=== PATIENT | female | born 1960 | race Caucasian/White ===

== ENCOUNTER 2020-05-31 17:30 | Outpatient (CLI) | payer OTHER, SELFPAY ==
--- NOTE | ~2020-05-31 | XR_ITS ---
EXAMINATION: XR elbow RT 2V EXAM DATE: 05/31/2020 17:46 INDICATION: No known recent injury provided at this time. Pain of the right elbow. TECHNIQUE: Frontal and lateral projections of the right elbow. There is no prior study for comparis on. FINDINGS: There are no acute fractures or dislocations identified. There is no subcutaneous gas. Th e soft tissue is unremarkable. There are no radiopaque foreign bodies. IMPRESSION: 1. Unremarkable right elbow exam. Reviewed, dictated and finalized at location A.
== END 2020-05-31 17:31 | disposition home or self-care (01) ==
LOC: ANHIMG 17:33
PROVIDERS: PCP Internal Medicine; Visit Provider Internal Medicine
DX: M25.521 Pain in right elbow (principal)
CPT/HCPCS: 73070

== ENCOUNTER 2020-09-25 17:15 | Outpatient (CLI) | payer OTHER, SELFPAY ==
--- NOTE | ~2020-09-25 | XR_ITS ---
EXAMINATION: XR foot RT 2V DATE: 09/25/2020 17:33 INDICATION: Posttraumatic pain at the right third toe TECHNIQUE: Dorsoplantar and lateral views of the right foot were obtained. COMPARISON: None. FINDINGS: Alignment is normal. No fracture. Mild osteoarthritis at the first metatarsophalangeal and several in terphalangeal joints. Small Achilles and plantar calcaneal spurs. Soft tissues are unremarkable. IMPRESSION: 1. No acute osseous abnormality. Reviewed, dictated and finalized at location A. RU[facility] FLYING
== END 2020-09-25 17:16 | disposition home or self-care (01) ==
PROVIDERS: PCP Internal Medicine; Visit Provider Internal Medicine
DX: M19.071 Primary osteoarthritis, right ankle and foot (principal)
CPT/HCPCS: 73620

== ENCOUNTER 2021-03-19 08:52 | Outpatient (CLI) | payer OTHER, SELFPAY ==
--- NOTE | 2021-03-19 08:58 | EST_ITS ---
Patient Info Name: Codi Alfaro Age: 60 years : 1960 Gender: Female Ht: 63 in Wt: 170 lbs BSA: 1.88 m2 Technical Quality: Good Exam Date: 03/19/2021 9:20 AM Exam Location: [facility] Pulmonary Patient Status: Outpatient Admit Date: 03/19/2021 Staff Ordering Physician: Rafael Wild DO [employer] Powerplant Mechanic: Lorin Almanza RDCS Attending Provider: CHAMP HOFFMANN DO Referring Physician: Junito GARCES; Exam Type: CA stress echo Study Info Indications R07.89 - Other chest pain Treadmill exercise stress echocardiogram is performed. Summary 1. 1. Negative Carlos Enrique exercise stress test for ischemic ST changes by ECG criteria. 2. 2. Good functional capacity, achieving 10 METs of workload. 3. 3. Appropriate HR response to exercise. 4. 4. Appropriate HR recovery at 1 minute post exercise. 5. 5. Negative stress echocardiogram for ischemia by wall motion analysis. 6. 6. Patient informed of the above results. Stress Echo Findings Left Ventricle Appropriate increase in LV endocardial thickening with systole. Appropriate augmentation of contractility with systole. No wall motion abnormality. Left Ventricle Normal LV systolic function, no wall motion abnormality. Protocol: Carlos Enrique Stress ECG Details Stage: REST Duration (min): 3 min : 26 sec Speed (mph): 0.0 Grade (%): 0 HR (bpm): 65 SBP (mmHg): 121 DBP (mmHg): 77 METS: --- Stage: REST Duration (min): 14 min : 38 sec Speed (mph): 0.0 Grade (%): 0 HR (bpm): 72 SBP (mmHg): 121 DBP (mmHg): 77 METS: --- Stage: STAGE 1 Duration (min): 1 min : 0 sec Speed (mph): 1.7 Grade (%): 10 HR (bpm): 82 SBP (mmHg): 121 DBP (mmHg): 77 METS: --- Stage: STAGE 1 Duration (min): 2 min : 0 sec Speed (mph): 1.7 Grade (%): 10 HR (bpm): 97 SBP (mmHg): 121 DBP (mmHg): 77 METS: --- Stage: STAGE 1 Duration (min): 3 min : 0 sec Speed (mph): 1.7 Grade (%): 10 HR (bpm): 99 SBP (mmHg): 141 DBP (mmHg): 69 METS: --- Stage: STAGE 2 Duration (min): 1 min : 0 sec Speed (mph): 2.5 Grade (%): 12 HR (bpm): 102 SBP (mmHg): 141 DBP (mmHg): 69 METS: --- Stage: STAGE 2 Duration (min): 2 min : 0 sec Speed (mph): 2.5 Grade (%): 12 HR (bpm): 110 SBP (mmHg): 145 DBP (mmHg): 68 METS: --- Stage: STAGE 2 Duration (min): 3 min : 0 sec Speed (mph): 2.5 Grade (%): 12 HR (bpm): 114 SBP (mmHg): 145 DBP (mmHg): 68 METS: --- Stage: STAGE 3 Duration (min): 1 min : 0 sec Speed (mph): 3.4 Grade (%): 14 HR (bpm): 125 SBP (mmHg): 145 DBP (mmHg): 68 METS: --- Stage: STAGE 3 Duration (min): 2 min : 0 sec Speed (mph): 3.4 Grade (%): 14 HR (bpm): 130 SBP (mmHg): 145 DBP (mmHg): 68 METS: --- Stage: STAGE 3 Duration (min): 3 min : 0 sec Speed (mph): 3.4 Grade (%): 14 HR (bpm): 137 SBP (mmHg): 163 DBP (mmHg): 79
== END 2021-03-19 08:53 | disposition home or self-care (01) ==
PROVIDERS: PCP Internal Medicine; Visit Provider Internal Medicine
DX: R07.89 Other chest pain (principal); R00.2 Palpitations
CPT/HCPCS: 93351

== ENCOUNTER 2022-10-07 13:02 | Outpatient (CLI) | payer OTHER, SELFPAY ==
[2022-10-07 13:58] LABS: SARS-CoV-2 RNA PCR Negative
== END 2022-10-07 13:03 | disposition home or self-care (01) ==
LOC: ANHLAB 13:03
PROVIDERS: PCP Internal Medicine; Visit Provider Internal Medicine
DX: B34.9 Viral infection, unspecified (principal); Z20.822 Contact with and (suspected) exposure to COVID-19
CPT/HCPCS: U0003; U0005

== ENCOUNTER 2023-09-15 17:47 | Outpatient (CLI) | payer BC, SELFPAY ==
--- NOTE | ~2023-09-15 | XR_ITS ---
EXAMINATION: XR chest 2V DATE: 09/15/2023 18:01 INDICATION: Persistent cough TECHNIQUE: PA and lateral views of the chest are obtained. COMPARISON: 08/10/2009 FINDINGS: The lungs are free of acute opacities. No pleural effusion or pneumothorax. The cardiomedia stinal silhouette is normal. There is mild thoracic spondylosis. There are surgical clips in the righ t upper quadrant. IMPRESSION: 1. No acute cardiopulmonary abnormality. Reviewed, dictated and finalized at location F. [employer]
== END 2023-09-15 17:48 | disposition home or self-care (01) ==
LOC: ANHIMG 17:50
PROVIDERS: PCP Internal Medicine; Visit Provider Physician Assistant
DX: R05.9 Cough, unspecified (principal)
CPT/HCPCS: 71046

== ENCOUNTER 2023-11-09 11:24 | Outpatient (CLI) | payer BC, SELFPAY ==
--- NOTE | ~2023-11-09 | XR_ITS ---
EXAMINATION: XR chest 2V DATE: 11/09/2023 11:41 INDICATION: Right-sided back pain TECHNIQUE: PA and lateral views of the chest are obtained. COMPARISON: 09/15/2023 FINDINGS: The lungs are free of acute opacities. No pleural effusion or pneumothorax. The cardiomedia stinal silhouette is normal. There is mild thoracic spondylosis. Surgical clips in the right upper qu adrant are likely from prior cholecystectomy. IMPRESSION: 1. No acute cardiopulmonary abnormality. Reviewed, dictated and finalized at location F. BAILER
--- NOTE | ~2023-11-09 | XR_ITS ---
EXAMINATION: XR lumbar spine 6V w bending DATE: 11/09/2023 11:41 INDICATION: Low back pain TECHNIQUE: Anteroposterior, lateral in neutral, flexion and extension, and bilateral oblique views of the lumbar spine, and cone-down lateral view of the lumbosacral junction were obtained. COMPARISON: 12/24/2008 FINDINGS: There are 2 mm of retrolisthesis of L4 on L5 and L5 on S1. There is no hypermobility with f lexion or extension. The vertebral body heights are maintained. There is moderate loss of interverteb ral disc space height at L2-3, L4-5, and L5-S1. There is no fracture. Small degenerative osteophytes project from the anterior endplates of multiple vertebral bodies. There is moderate facet joint osteo arthritis from L3-4 through L5-S1. Surgical clips in the right upper quadrant are likely from prior c holecystectomy. IMPRESSION: 1. Moderate lumbar spondylosis without acute findings. Reviewed, dictated and finalized at location F. [employer]
== END 2023-11-09 11:25 | disposition home or self-care (01) ==
LOC: ANHIMG 11:26
PROVIDERS: PCP Internal Medicine; Visit Provider Physician Assistant
DX: M43.06 Spondylolysis, lumbar region (principal); R05.8 Other specified cough
CPT/HCPCS: 71046; 72114

== ENCOUNTER 2024-03-09 17:33 | Inpatient (IN) | payer BC, SELFPAY ==
--- NOTE | ~2024-03-09 | CT_ITS ---
EXAMINATION: CT soft tissue neck wo con DATE: 03/09/2024 20:35 INDICATION: TECHNIQUE: Computed tomography (CT) of the neck was performed with 75 mL Omnipaque-350 intravenous co ntrast. The dose-length product was 407.78 mGy-cm. COMPARISON: None FINDINGS: Diffuse right parotid swelling. Punctate calcification in the right parotid gland. The left parotid g land is normal. The thyroid gland is unremarkable. The submandibular glands are symmetric. There is no cervical lymphadenopathy. There are no masses identified. The superior mediastinum is unre markable. The airway is unremarkable. Parapharyngeal and pre-glottic fat planes are preserved. T he orbits are unremarkable. Visualized sinuses and mastoid air cells are well aerated. Minimal de pendent edema/atelectasis. There is cervical spondylosis. IMPRESSION: Right parotiditis. Reviewed, dictated and finalized at location K. IMPRESSION: Right parotiditis.
[2024-03-09 17:51] VITALS: BP 133/86; PULSE 82; RESP 16; TEMP 36.5; O2SAT 99
[2024-03-09 20:18] VITALS: BP 132/79; PULSE 84; RESP 18; TEMP 36.6; O2SAT 100
[2024-03-09 20:28] LABS: Basophils Percent Auto 0.4 % (0.2-1.2); Eosinophils Absolute Auto 0.1 K/mm3 (0-0.3); Eosinophils Percent Auto 1.3 % (0-4.4); Hematocrit 39.7 % (37.0-47.0); Hemoglobin 13.5 g/dL (12.0-15.0); Immature Granulocyte Absolute 0.02 K/mm3 (0.00-0.031); Immature Granulocyte Percent A 0.3 % (0-0.5); Lymphocytes Absolute Auto 1.54 K/mm3 (0.9-3.2); Lymphocytes Percent Auto 19.8 % (18.3-44.2); Mean Corpuscular Volume 91.3 fl (80-100); Mean Platelet Volume 10.4 fl (7.4-10.4); Monocytes Absolute Auto 0.5 K/mm3 (0.1-0.6); Monocytes Percent Auto 5.9 % (2.6-8.5); Neutrophils Absolute Auto 5.6 K/mm3 (1.3-6.7); Neutrophils Percent Auto 72.3 % (45.5-73.1); Platelet Count Result 129 k/mm3 (150-375); Red Blood Count 4.35 M/mm3 (4.2-5.4); Red Cell Distribution Width 13.3 % (11.5-14.5); White Blood Count 7.8 K/mm3 (4.5-10.0)
[2024-03-09 20:37] LABS: Alanine Aminotransferase 19 U/L (6-35); Albumin Level 4.4 g/dL (3.5-5.1); Alkaline Phosphatase 122 U/L (38-126); Anion Gap 7 mmol/L (4-12); Aspartate Amino Transferase 32 U/L (14-36); Bilirubin,Total 1.2 mg/dL (0.2-1.3); Blood Urea Nitrogen 20 mg/dL (7-17); Calcium 9.5 mg/dL (8.4-10.2); Carbon Dioxide 25 mmol/L (22-30); Chloride 104 mmol/L (98-107); Estimated CRCL calculation 50 ml/min; Estimated Glomerular Filt Rate 56; Glucose 99 mg/dL (65-110); Potassium 4.1 mmol/L (3.4-5.0); Sodium 136 mmol/L (137-145)
[2024-03-09] MEDS: SODIUM CHLORIDE 0.9% IV 1,000 ML 999 ML IV CONT (20:50)
[2024-03-09 21:37] VITALS: BP 137/62; PULSE 63; RESP 18; TEMP 36.8; O2SAT 97
--- NOTE | 2024-03-09 22:14 | ED.GENADULT ---
HPI - General Adult General Chief complaint: Recheck/Abnormal Lab/Rx Stated complaint: swelling to right ear Time Seen by Provider: 03/09/24 19:12 History of Present Illness HPI narrative: This is a 63-year-old female with a history of liver transplant on immunosuppression presenting with swelling beneath the right ear. Patient notes the swelling earlier today. It is in the angle of her jaw and now is having pain going down her neck. She has no difficulty swallowing. She denies fever chills nausea vomiting or diarrhea. no hx of viral illness. Related Data Home Medications Medication Instructions Recorded Confirmed ursodiol 300 mg capsule 600 mg PO BID 01/05/20 03/09/24 mycophenolate mofetil 250 mg 1,000 mg PO Q12H 01/10/21 03/09/24 capsule tacrolimus 1 mg capsule, 2 mg PO Q12H 05/21/21 03/09/24 immediate-release (Prograf) Allergies Allergy/AdvReac Type Severity Reaction Status Date / Time Iodinated Contrast Media Allergy Severe SOB Verified 03/09/24 22:15 minocycline Allergy Severe Hives Verified 03/09/24 22:15 tetracycline Allergy Severe HIVES, Verified 03/09/24 22:15 THROAT SWELLING PMFSH Past Medical History Medical History Anxiety Hyperlipidemia Hypothyroidism Primary biliary cirrhosis Surgical History Surgical History Delivery by section History of endometrial ablation History of tubal ligation S/P liver transplant Family History Family History Father Patient's father is Mother Lung cancer Other Acute myocardial infarction Heart disease Social History Social History Smoking status: Former smoker Smoking end date: 10/27/83 Alcohol intake: never Substance use: never Substance use type: does not use Do You Feel Safe in your Home?: Yes Lack of Transportation: No Lack of Food: Never True Current Housing: I Have Housing Concerned About Future Housing: No Difficulty Paying Gas/Electric Bills: No Difficulty Paying for Meds: No Currently Unemployed: No Education: Associate Degree Difficulty w/ Childcare or Family Care: No Living arrangements: with family Occupation/Education: occupation Gender identity (if verbalized by the patient): Female Sexual Orientation (if Verbalized by the Patient): Straight or Heterosexual Exam Narrative: APPEARANCE: No apparent distress. Head: Tender palpable mass over the parotid on the right side. No overlying skin changes. Poor dentition. No swelling of the tongue uvula or posterior oropharynx. EYES: EOMI, NOSE: Atraumatic NECK: Trachea midline RESPIRATORY: No increased rate of breathing, CTAB CARDIOVASCULAR: RRR, ABDOMINAL: Non-distended MUSCULOSKELETAl: No obvious deformities NEURO: Alert. Moving 4/4 extremities SKIN:: Warm, dry. Normal color PSYCHIATRIC: Normal affect Course Vital Signs Vital signs: Vital Signs Temperature 97.7 F 03/09/24 17:51 Pulse Rate 82 03/09/24 17:51 Respiratory Rate 16 03/09/24 17:51 Blood Pressure 133/86 03/09/24 17:51 Pulse Oximetry 99 03/09/24 17:51 Oxygen Delivery Room Air 03/09/24 17:51 Temperature 98.2 F 03/09/24 21:37 Pulse Rate 63 03/09/24 21:37 Respiratory Rate 18 03/09/24 21:37 Blood Pressure 137/62 03/09/24 21:37 Pulse Oximetry 97 03/09/24 21:37 Oxygen Delivery Room Air 03/09/24 20:18 Medical Decision Making [facility] Narrative Medical decision making narrative: -Course: 63-year-old female with liver transplant on immunosuppression presenting for swelling of her right parotid gland. CT shows parotitis. Patient has normal white count/ stable vital signs. No evidence of sepsis at this time. However she is immunosuppressed. She will be placed in observatio
--- NOTE | 2024-03-09 22:23 | PM.IMHP ---
H&P: HPI History of Present Illness Date/Time: 03/09/24 22:23 Chief Complaint: jaw swelling Narrative: This is a 63-year-old female with past medical history significant for liver transplant, hypothyroidism, chronic drug induced immunosuppression. patient presents to the emergency room due to swelling at the right side of her face, painful. Patient has been her usual state of health, denies any fevers, rigors, chills, no dysphagia, no odynophagia. Preliminary workup was significant for right-sided parotiditis. Patient has been admitted for further evaluation management and treatment. EXAMINATION: CT soft tissue neck wo con DATE: 03/09/2024 20:35 INDICATION: TECHNIQUE: Computed tomography (CT) of the neck was performed with 75 mL Omnipaque-350 intravenous contrast. The dose-length product was 407.78 mGy-cm. COMPARISON: None FINDINGS: Diffuse right parotid swelling. Punctate calcification in the right parotid gland. The left parotid gland is normal.? The thyroid gland is unremarkable. ? The submandibular glands are symmetric. ? There is no cervical lymphadenopathy.? There are no masses identified.? ? The superior mediastinum is unremarkable. ? The airway is unremarkable. ? Parapharyngeal and pre-glottic fat planes are preserved.? The orbits are unremarkable. ? Visualized sinuses and mastoid air cells are well aerated. ? Minimal dependent edema/atelectasis.? There is cervical spondylosis. IMPRESSION: Right parotiditis. Review of Systems Review of Systems: Right side face swelling Constitutional: Constitutional: Denies chills, Denies fever(s), Denies malaise, Denies night sweats and Denies poor appetite Eyes: Eyes: Denies change in vision ENT: Denies dysphagia and Denies odynophagia Cardiovascular: Cardiovascular: Denies chest pain, Denies radiating jaw, neck or arm pain and Denies palpitations Respiratory: Respiratory: Denies chest congestion and Denies cough Gastrointestinal: Gastrointestinal: Denies abdominal pain, Denies diarrhea, Denies nausea and Denies vomiting Genitourinary: Genitourinary: Denies dysuria Musculoskeletal: Musculoskeletal: Denies myalgias Integumentary/Breasts: Skin/Breast: Denies rash Neurologic: Denies focal weakness and Denies Sensory deficit (Neuro) Psychiatric: Psychiatric: Reports no additional psychiatric complaints and Reports as per HPI Endocrine: Endocrine: Denies cold intolerance, Denies heat intolerance, Denies polyphagia, Denies polydipsia, Denies polyuria and Denies palpitations Hematologic/Lymphatic: Hematologic/Lymphatic: Reports no additional hematologic/lymphatic complaints and Reports as per HPI Allergic/Immunologic: Allergic/Immunologic: Reports no additional allergic/immunologic complaints and Reports as per HPI [facility] Past Medical History Medical History Anxiety Hyperlipidemia Hypothyroidism Primary biliary cirrhosis Surgical History Surgical History Delivery by section History of endometrial ablation History of tubal ligation S/P liver transplant Family History Family History (Updated 03/09/24 @ 23:49 by Priscila Cartagena RN) Father Patient's father is Acute myocardial infarction Parkinson disease Mother Lung cancer Patient's mother is Social History Social History Smoking status: Former smoker Tobacco type: cigarettes Smoking end date: 10/27/83 Alcohol intake: never Substance use: never Substance use type: does not use Do You Feel Safe in your Home?: Yes Lack of Transportation: No Lack of Food: Never True Current Housing: I Have Housing Concerned About Future Housing: No Difficulty Paying Gas/Electric Bills: No Difficulty Paying for Meds: No Currently Unemployed: No Education: Associate Degree D
[2024-03-09] MEDS: SODIUM CHLORIDE 0.9% IV 2,000 ML 999 ML IV CONT (22:26)
--- NOTE | 2024-03-09 22:26 | PC.NURSE ---
1st set of blood cultures obtained by ronny esquivel at this time.
--- NOTE | 2024-03-09 22:38 | PC.NURSE ---
blood cultures x 2 obtained by tech, antibiotics starting
[2024-03-09] MEDS: PIPERACILLN/TAZ 3.375GM/NS50ML 3.375 GM/50 ML BAG IVPB (22:42)
[2024-03-09] MEDS: VANCOMYCIN 1,250 MG/NS 250 ML 1,250 MG/250 ML BAG 166.67 MG IVPB (22:58)
[2024-03-09 23:01] VITALS: BP 131/81; PULSE 66; RESP 18; TEMP 36.7; O2SAT 95
--- NOTE | 2024-03-09 23:23 | ADMGEN ---
This patient, Codi Alfaro, was admitted to Medical Room 348-. Patient/family oriented to hospital policies and general routines including ID bracelet, bed and alarms, visiting hours, pain management, procedures, bathroom and other care routines, personal items, smoking policy, room service/diet, and visiting hours. Information on how to activate the Rapid Response Team has been discussed. Patient/Family are encouraged to report perceived risks to care and to ask questions if they do not understand what they are told or what they should do.
[2024-03-09 23:31] VITALS: BP 154/87; PULSE 79; RESP 16; TEMP 36.8; O2SAT 100; BMI 31.0
[2024-03-10 00:12] LABS: Lactic Acid Reflex < 0.5 mmol/L (0.7-2.0)
[2024-03-10] MEDS: diphenhydrAMINE HCl INJ 50 MG/ML VIAL IV PUSH (01:04)
--- NOTE | 2024-03-10 01:14 | PC.NURSE ---
Patient was admitted to [facility] with Vancomycin running from ED . During admission assessment patient complained of scalp itching and redness was noted. Hospitalist was contacted and order for Benedryl 50 mg once was obtained.
[2024-03-10] MEDS: IBUPROFEN 400 MG TABLET 800 MG PO (02:03)
[2024-03-10 04:54] VITALS: BP 137/81; PULSE 61; RESP 16; TEMP 36.7; O2SAT 98
[2024-03-10 05:49] LABS: Estimated CRCL calculation 57 ml/min; Estimated Glomerular Filt Rate > 60
[2024-03-10] MEDS: PIPERACILLN/TAZ 3.375GM/NS50ML 3.375 GM/50 ML BAG IVPB (05:57)
[2024-03-10] MEDS: LEVOTHYROXINE SODIUM 75 MCG TABLET PO (05:57)
[2024-03-10 08:33] VITALS: O2SAT 99
[2024-03-10] MEDS: ursodioL 300 MG CAPSULE 600 MG PO ×2 (09:01→20:24)
[2024-03-10] MEDS: TACROLIMUS 0.5 MG CAPSULE 2 MG BY MOUTH ×2 (09:01→20:25)
[2024-03-10] MEDS: SERTRALINE HCL 50 MG TABLET PO (09:01)
[2024-03-10] MEDS: mycophenolate mofetiL 250 MG CAPSULE PO ×2 (09:01→20:24)
[2024-03-10 10:08] LABS: Basophils Percent Auto 0.5 % (0.2-1.2); Eosinophils Absolute Auto 0.1 K/mm3 (0-0.3); Eosinophils Percent Auto 1.2 % (0-4.4); Hematocrit 38.6 % (37.0-47.0); Hemoglobin 12.9 g/dL (12.0-15.0); Immature Granulocyte Absolute 0.01 K/mm3 (0.00-0.031); Immature Granulocyte Percent A 0.2 % (0-0.5); Immature Platelet Fraction Pct 3.2 % (0.9-11.2); Lymphocytes Absolute Auto 1.64 K/mm3 (0.9-3.2); Lymphocytes Percent Auto 28.5 % (18.3-44.2); Mean Corpuscular HGB Conc 33.4 g/dl (32-36); Mean Corpuscular Hemoglobin 31.2 pg (26-34); Mean Corpuscular Volume 93.5 fl (80-100); Mean Platelet Volume 10.9 fl (7.4-10.4); Monocytes Absolute Auto 0.5 K/mm3 (0.1-0.6); Neutrophils Absolute Auto 3.6 K/mm3 (1.3-6.7); Neutrophils Percent Auto 61.6 % (45.5-73.1); Platelet Count Result 120 k/mm3 (150-375); Red Blood Count 4.13 M/mm3 (4.2-5.4); Red Cell Distribution Width 13.6 % (11.5-14.5); White Blood Count 5.8 K/mm3 (4.5-10.0)
[2024-03-10 10:52] LABS: Alanine Aminotransferase 19 U/L (6-35); Albumin Level 3.7 g/dL (3.5-5.1); Alkaline Phosphatase 106 U/L (38-126); Anion Gap 6 mmol/L (4-12); Aspartate Amino Transferase 36 U/L (14-36); Bilirubin,Total 1.2 mg/dL (0.2-1.3); Blood Urea Nitrogen 15 mg/dL (7-17); Calcium 8.4 mg/dL (8.4-10.2); Carbon Dioxide 21 mmol/L (22-30); Chloride 112 mmol/L (98-107); Estimated CRCL calculation 57 ml/min; Estimated Glomerular Filt Rate > 60; Glucose 93 mg/dL (65-110); Magnesium 1.4 mg/dL (1.6-2.3); Sodium 139 mmol/L (137-145)
[2024-03-10] MEDS: metroNIDAZOLE 500 MG/ISO 100ML 500 MG/100 ML BAG 100 MG IVPB ×2 (12:19→17:17)
[2024-03-10] MEDS: AMPICILLIN SULB 3 GM/NS 100 ML 3 GM/100 ML VIAL IVPB ×2 (12:19→17:17)
[2024-03-10 14:00] VITALS: BP 127/68; PULSE 63; RESP 14; TEMP 36.4; O2SAT 99
[2024-03-10] MEDS: MAGNESIUM OXIDE 400 MG TABLET PO (16:35)
[2024-03-10] MEDS: IBUPROFEN 600 MG TABLET PO (16:36)
--- NOTE | 2024-03-10 18:40 | PM.IMPN ---
Progress Note: A&P Assessment and Plan (1) Acute parotitis: Code(s): K11.21 - Acute sialoadenitis Status: Acute Assessment and Plan: placed in observation started on Zosyn and vanc 03/10: Changed antibiotics to Unasyn and Flagyl DC vancomycin is no risk for MRSA White count 5.8 today Afebrile, generalized body aches Likely a transition oral agents tomorrow and discharge (2) Liver transplant recipient: Code(s): Z94.4 - Liver transplant status Status: Acute Assessment and Plan: continue tacrolimus continue mycophenolate Subjective Date/time seen: 03/10/24 18:40 Interval history: 03/10: Patient doing well today. She complains of generalized body aches. Swelling to her right parotid has decreased. She still has some tenderness to palpation. Denies drainage. Review of Systems Review of Systems: All systems reviewed & are unremarkable except as noted in HPI and below Exam Narrative: General: well appearing, appears stated age. HEENT: normocephalic, atraumatic. Mucous membranes moist. EOMI, PERRLA, bilateral sclera anicteric, no conjunctival injection. Mild edema to right parotid gland, without JVD, lymphadenopathy, or bruit. Respiratory: clear to auscultation bilaterally. No rales/rhonic/wheezes. Cardiovascular: Regular rate and rhythm, normal S1-S2 upon auscultation. No murmurs, rubs, or clicks. PMI is nondisplaced, capillary refill less than 3 second. Abdomen: Soft, round, no pulsatile masses, nondistended and nontender. No rebound, no guarding. No CVA tenderness, no hepatosplenomegaly. Bowel sounds present to all four quadrants. No high pitch or tinkling sounds, resonant to percussion. Extremities: No cyanosis, clubbing, or edema present. Pulses are palpable 2/2. Active ROM to all four extremities. Neuro: Alert and orientated x 4. PERRLA. Cranial nerves 2-12 intact without focal deficit. Skin: Warm, dry, and intact, without rash, erythema, or lesion. Appears scantly jaundice. Lines: Incisions: Psych: pleasant, cooperative, normal speech, normal affect, no hallucinations, no dysarthria Objective Data Vital Signs Vital Signs: Vital Signs - 24 hr 03/09/24 20:18 03/09/24 21:37 03/09/24 23:01 Temperature 97.8 F 98.2 F 98.1 F Pulse Rate 84 63 66 Respiratory Rate 18 18 18 Blood Pressure 132/79 137/62 131/81 Pulse Oximetry 100 97 95 Oxygen Delivery Room Air 03/09/24 23:31 03/10/24 04:54 03/10/24 08:33 Temperature 98.2 F 98.1 F Pulse Rate 79 61 Respiratory Rate 16 16 Blood Pressure 154/87 H 137/81 Pulse Oximetry 100 98 99 Oxygen Delivery Room Air 03/10/24 08:00 03/10/24 14:00 Temperature 97.5 F L Pulse Rate 63 Respiratory Rate 14 Blood Pressure 127/68 Pulse Oximetry 99 Oxygen Delivery Room Air Intake/Output Intake/Output: Intake & Output 03/07/24 03/08/24 03/09/24 03/10/24 23:59 23:59 23:59 23:59 Intake Total 1000 3133.9 Output Total 600 Balance 1000 2533.9 Meds/Results Medications: Active Medications Generic Name Dose Route Start Last Admin Trade Name Freq PRN Reason Stop Dose Admin Ampicillin Sodium/Sulbactam Sodium 3 gm in 100 mls @ 200 mls/hr 03/10/24 12:00 03/10/24 17:17 Unasyn 3 Gm/Ns 100 Ml IVPB 200 mls/hr Q6HR LATONYA Administration Metronidazole 500 mg in 100 mls @ 100 mls/hr 03/10/24 10:00 03/10/24 17:17 Flagyl 500 Mg/Iso Soln 100 Ml IVPB 100 mls/hr Q8H LATONYA Administration Levothyroxine Sodium 75 mcg 03/10/24 06:30 03/10/24 05:57 Levothyroxine Sodium 75 Mcg Tablet PO 75 mcg DAILY@0630 LATONYA Administration Lorazepam 0.5 mg 03/10/24 02:33 Lorazepam (*Crx) 0.5 Mg Tablet PO DAILY PRN anxiety Mycophenolate Mofetil 250 mg 03/10/24 09:00 03/10/24 09:01 Mycophenolate Mofetil 250 Mg Capsule PO 250 mg Q12HR LATONYA Administration Sertraline HCl 50 mg 03/10/24 09:00 03/10/24 09:01 Sertraline Hcl 50 Mg Tablet PO 50 mg DAILY LATONYA A
[2024-03-10 20:22] VITALS: BP 132/67; PULSE 61; RESP 20; TEMP 36.9; O2SAT 98
[2024-03-11] MEDS: AMPICILLIN SULB 3 GM/NS 100 ML 3 GM/100 ML VIAL IVPB ×3 (01:02→12:38)
[2024-03-11] MEDS: metroNIDAZOLE 500 MG/ISO 100ML 500 MG/100 ML BAG 100 MG IVPB ×2 (01:40→09:46)
[2024-03-11 05:08] VITALS: BP 144/86; PULSE 64; RESP 18; TEMP 36.9; O2SAT 98
[2024-03-11] MEDS: LEVOTHYROXINE SODIUM 75 MCG TABLET PO (06:11)
[2024-03-11 06:14] LABS: Basophils Percent Auto 0.6 % (0.2-1.2); Eosinophils Absolute Auto 0.2 K/mm3 (0-0.3); Eosinophils Percent Auto 3.3 % (0-4.4); Hematocrit 39.6 % (37.0-47.0); Hemoglobin 13.5 g/dL (12.0-15.0); Immature Granulocyte Absolute 0.01 K/mm3 (0.00-0.031); Immature Granulocyte Percent A 0.2 % (0-0.5); Immature Platelet Fraction Pct 3.4 % (0.9-11.2); Lymphocytes Absolute Auto 1.41 K/mm3 (0.9-3.2); Mean Corpuscular HGB Conc 34.1 g/dl (32-36); Mean Corpuscular Hemoglobin 31.5 pg (26-34); Mean Corpuscular Volume 92.5 fl (80-100); Mean Platelet Volume 10.3 fl (7.4-10.4); Monocytes Absolute Auto 0.4 K/mm3 (0.1-0.6); Monocytes Percent Auto 7.6 % (2.6-8.5); Neutrophils Absolute Auto 3.2 K/mm3 (1.3-6.7); Neutrophils Percent Auto 61.3 % (45.5-73.1); Platelet Count Result 122 k/mm3 (150-375); Red Blood Count 4.28 M/mm3 (4.2-5.4); Red Cell Distribution Width 13.7 % (11.5-14.5); White Blood Count 5.2 K/mm3 (4.5-10.0)
[2024-03-11 06:33] LABS: Alanine Aminotransferase 19 U/L (6-35); Albumin Level 4.1 g/dL (3.5-5.1); Alkaline Phosphatase 125 U/L (38-126); Anion Gap 8 mmol/L (4-12); Aspartate Amino Transferase 32 U/L (14-36); Bilirubin,Total 1.5 mg/dL (0.2-1.3); Blood Urea Nitrogen 15 mg/dL (7-17); Calcium 8.9 mg/dL (8.4-10.2); Carbon Dioxide 21 mmol/L (22-30); Chloride 110 mmol/L (98-107); Estimated CRCL calculation 64 ml/min; Estimated Glomerular Filt Rate > 60; Glucose 95 mg/dL (65-110); Magnesium 1.6 mg/dL (1.6-2.3); Potassium 4.2 mmol/L (3.4-5.0); Sodium 139 mmol/L (137-145)
[2024-03-11] MEDS: SERTRALINE HCL 50 MG TABLET PO (09:45)
[2024-03-11] MEDS: ursodioL 300 MG CAPSULE 600 MG PO (09:45)
[2024-03-11] MEDS: TACROLIMUS 0.5 MG CAPSULE 2 MG BY MOUTH (09:46)
[2024-03-11] MEDS: mycophenolate mofetiL 250 MG CAPSULE PO (09:46)
--- NOTE | 2024-03-11 10:11 | PM.DS ---
DS: Admitting Diagnosis Discharge Date 03/11 Admitting Diagnosis right facial swelling and pain DS: Discharge Diagnosis Discharge Diagnosis (1) Acute parotitis: Code(s): K11.21 - Acute sialoadenitis Status: Acute Assessment and Plan: placed in observation started on Zosyn and vanc 03/10: Changed antibiotics to Unasyn and Flagyl DC vancomycin is no risk for MRSA White count 5.8 today Afebrile, generalized body aches Likely a transition oral agents tomorrow and discharge (2) Liver transplant recipient: Code(s): Z94.4 - Liver transplant status Status: Acute Assessment and Plan: continue tacrolimus continue mycophenolate DS: Summary Hospital Course Reason for hospitalization: acute parotitis Hospital Course: This is a 63-year-old female with past medical history significant for liver transplant, hypothyroidism, chronic drug induced immunosuppression. patient presents to the emergency room due to swelling at the right? side of her face, painful.? Patient has been her usual state of health, denies any fevers, rigors, chills, no dysphagia, no odynophagia.? Preliminary workup was significant for right-sided parotiditis.? Patient has been admitted for further evaluation management and treatment. Patient received IV antibiotics and her symptoms improved. Her labs have been reviewed and are stable. Isolated hydrobilirubin seen on am labs with no other concerns on LFT panel. She is stable to discharge today with oral antibiotics and appropriate PCP follow up. Time Spent with Patient Time attestation: Total time spent providing and/or coordinating discharge services: 56 Exam Narrative: General: well appearing, appears stated age. HEENT: normocephalic, atraumatic. Mucous membranes moist. EOMI, PERRLA, bilateral sclera anicteric, no conjunctival injection. Mild edema to right parotid gland, without JVD, lymphadenopathy, or bruit. Respiratory: clear to auscultation bilaterally. No rales/rhonic/wheezes. Cardiovascular: Regular rate and rhythm, normal S1-S2 upon auscultation. No murmurs, rubs, or clicks. PMI is nondisplaced, capillary refill less than 3 second. Abdomen: Soft, round, no pulsatile masses, nondistended and nontender. No rebound, no guarding. No CVA tenderness, no hepatosplenomegaly. Bowel sounds present to all four quadrants. No high pitch or tinkling sounds, resonant to percussion. Extremities: No cyanosis, clubbing, or edema present. Pulses are palpable 2/2. Active ROM to all four extremities. Neuro: Alert and orientated x 4. PERRLA. Cranial nerves 2-12 intact without focal deficit. Skin: Warm, dry, and intact, without rash, erythema, or lesion. Appears scantly jaundice. Lines: Incisions: Psych: pleasant, cooperative, normal speech, normal affect, no hallucinations, no dysarthria DS: Data Data Completed and Pending Labs on day of discharge: Labs from last 24 hours 03/11/24 03/10/24 05:46 05:21 WBC 5.2 5.8 RBC 4.28 4.13 L Hgb 13.5 12.9 Hct 39.6 38.6 MCV 92.5 93.5 MCH 31.5 31.2 MCHC 34.1 33.4 RDW 13.7 13.6 Plt Count 122 L 120 L MPV 10.3 10.9 H Immature Gran % (Auto) 0.2 0.2 Neut % (Auto) 61.3 61.6 Lymph % (Auto) 27.0 28.5 J[place]uld % (Auto) 7.6 8.0 Eos % (Auto) 3.3 1.2 Baso % (Auto) 0.6 0.5 Lymph # (Auto) 1.41 1.64 J[place]uld # (Auto) 0.4 0.5 Eos # (Auto) 0.2 0.1 Baso # (Auto) 0.0 0.0 Abs Immat Gran (auto) 0.01 0.01 Absolute Neuts (auto) 3.2 3.6 Absolute Nucleated RBC 0.000 0.000 Nucleated RBC % 0.0 0.0 % Immature Plt Fraction 3.4 3.2 Sodium 139 139 Potassium 4.2 4.0 Chloride 110 H 112 H Carbon Dioxide 21 L 21 L Anion Gap 8 6 BUN 15 15 D Creatinine 0.80 0.90 Estim Creat Clear Calc 64 57 Estimated GFR > 60 > 60 Glucose 95 93 Calcium 8.9 8.4 Magnesium 1.6 1.4 L Total Bilirubin 1.5 H 1.2 AST 32 36 ALT 19 19 Alkaline Phosphatase 125 106 Total Protein 7.0 7.0 Albumi
== END 2024-03-11 14:31 | disposition home or self-care (01) | DRG 155 ==
LOC: ANHED 22:25 → ANH3MED 22:52
PROVIDERS: Admitting Provider Internal Medicine; Emergency Provider Emergency Medicine; PCP Internal Medicine; Visit Provider Nurse Practitioner Acute Care
DX: K11.21 Acute sialoadenitis (principal); D84.821 Immunodeficiency due to drugs; Z94.4 Liver transplant status; E78.5 Hyperlipidemia, unspecified; E03.9 Hypothyroidism, unspecified; F41.9 Anxiety disorder, unspecified; Z87.891 Personal history of nicotine dependence; Z79.621 Long term (current) use of calcineurin inhibitor; Z79.899 Other long term (current) drug therapy
CPT/HCPCS: 36415; 70490; 80053; 82565; 83605; 83735; 85025; 85055; 87040; 96361; 96365; 96366; 96367; 96375; 99285; A9270; G0378; J0295; J1200; J1836; J2543; J3370; J7030; J7120; J7517

== ENCOUNTER 2024-09-29 17:42 | Outpatient (CLI) | payer BC, SELFPAY ==
[2024-09-29 18:38] LABS: Strep Group A RT-PCR NOT DETECTED (Negative)
== END 2024-09-29 17:43 | disposition home or self-care (01) ==
LOC: ANHLAB 17:44
PROVIDERS: PCP Internal Medicine; Visit Provider Internal Medicine
DX: J02.9 Acute pharyngitis, unspecified (principal)
CPT/HCPCS: 87081; 87651

== ENCOUNTER 2024-12-11 11:19 | Outpatient (CLI) | payer BC, SELFPAY ==
--- NOTE | ~2024-12-11 | XR_ITS ---
HISTORY: M79.641 - Pain in right hand COMPARISON: None TECHNIQUE: 3 views of the right hand were performed. FINDINGS: No acute fracture is identified. Gullwing deformity is identified within the proximal interphalangeal joint spaces of the second, thir d, fourth and fifth digits. Narrowing of the first carpometacarpal joint space is identified with subchondral sclerosis. Periarti cular osteopenia is identified. The distal interphalangeal joint spaces are maintained. The remaining joint spaces are preserved. The carpal arcs are intact. Mild radiocarpal joint space narrowing with sclerosis of the distal radius is present. No significant soft tissue swelling. No radiopaque foreign body is identified. IMPRESSION: No acute fracture or dislocation within the right hand, as detailed above. Findings suggesting osteoarthritis, as detailed above. Reviewed, dictated and finalized at location A. D INVESTIGATOR
--- OUTSIDE RECORDS SUMMARY | 2024-12-11 11:22 | XMS_ITS | Clinical Summary ---
Author Organization [facility] Address [facility] [place] [address] Care Team Providers Care Contact Representative Name Role Phone Rafael Wild MD Primary Care Provider [phone] Allergies Active Allergy Reactions Criticality Noted Date Comments Iodine Anaphylaxis High 08/18/2018 Tetracycline Anaphylaxis High 08/18/2018 Medications lorazepam 0.5 MG tablet Take 0.5 mg by mouth daily as needed for Anxiety. 0 07/31/2018 Active levothyroxine 75 MCG tablet Take 75 mcg by mouth daily. 07/21/2018 Active mycophenolate 250 MG capsule Take 250 mg by mouth 2 (two) times a day. 08/06/2018 Active sertraline 50 MG tablet Take 50 mg by mouth daily. 07/21/2018 Active tacrolimus 1 MG capsule Take 2 mg by mouth 2 (two) times a day. 07/21/2018 Active ursodiol 300 MG capsule Take 500 mg by mouth 2 (two) times daily. 07/21/2018 Active Family History Medical History Relation Comments Heart Disease Father Cancer Maternal Grandfather Heart Disease Maternal Grandfather Heart Disease Maternal Grandmother Cancer Mother Heart Disease Paternal Grandfather Heart Disease Paternal Grandmother Relation Status Comments Father Maternal Grandfather pancreatic Maternal Grandmother Mother lung Paternal Grandfather Paternal Grandmother Social History Tobacco Use Types Packs/Day Years Used Date Smoking Tobacco: Never Smokeless Tobacco: Never Alcohol Use Standard Drinks/Week Comments No 0 (1 standard drink = 0.6 oz pur e alcohol) AUDIT-C Answer Date Recorded Frequency of Alcohol Consumption Never 08/18/2018 Average Number of Drinks Not on file 018 Frequency of Binge Drinking Not on file 07/28 Comments No Sex and Gender Information Value Date Recorded Sex Assigned at Not on file Legal Sex Female 7:10 AM CDT Gender Identity Not on file Sexual Orientation Not on file Last Filed Vital Signs Vital Sign Reading Time Taken Comments Blood Pressure 122/72 10/01/2018 3:30 AM FACULTY CRIMINAL JUSTICE Pulse 56 10/01/2018 3:30 AM [employer]AL [employer] Temperature 36.9 C (98.4 F) 10/01/2018 12:19 AM F[employer]AL [employer] Respiratory Rate 15 10/01/2018 3:30 AM FAC[employer]Y CR[employer]INAL [employer]ICE Oxygen Saturation 93% 10/01/2018 3:30 AM FAC[employer]Y CR[employer]INAL [employer]ICE Inhaled Oxygen Concentration - - Weight 77 kg (169 lb 12.8 oz) 10/01/2018 12:19 A M [employer] Height 160 cm (5' 3 ) 10/01/2018 12:19 AM FAC[employer]Y CR[employer]INAL JUSTICE Body Mass Index 30.08 10/01/2018 12:19 AM [employer]Y [employer]AL [employer] Plan of Treatment Health Maintenance Due Date Last Done Comments Cervical Cancer Screening Pa p Smear (Age 30 to 64) Every 3 Years 1962 Colorectal Cancer Screening Colonoscopy (10 Years) 1962 Annual Physical 1965 COVID-19 Vaccine (#1) 1967 Pneumococcal Vaccine: Pediat rics (0 to 5 Years) and At-Risk Patients (6 to 64 Years) (1 of 2 - PCV) 1968 Hepatitis C 1980 DTaP, Tdap and Td Vaccines ( 1 - Tdap) 1981 Zoster Vaccines (1 of 2) 1981 Cervical Cancer Screening Pa p with HPV Testing (Age 30 to 64) Every 5 Years 1992 Cervical Cancer Screening with HPV 1992 Mammogram Screening 2002 RSV Immunization or 60+ Years (1 - Risk 60-74 years 1-dose series) 2022 Influenza Adult (#1) 2024 08/16/2017 Meningococcal B Vaccine Aged Out No l onger eligible based on patient's age to complete this topic Meningococcal Vaccine Aged Out No sandy franklin eligible based on patient's age to complete this topic RSV Immunizations Under 20 Months Aged Out No longer eligible based on patient's age to complete this topic Insurance [address] [place] [address] [employer] Care Teams Contact Representative Relationship Specialty Start Date End Date Rafael Wild MD [address] [place] [address] PCP - General INTERNAL MEDICINE 08/18/18
--- OUTSIDE RECORDS SUMMARY | 2024-12-11 11:22 | XMS_ITS | Encounter Summary ---
Author Organization [facility] Care Team Providers Care Pc Support Specialist Name Role Phone Rafael Wild MD Primary Care Provider [phone] Encounter Details Date Type Department Care Team (Latest Contact Info) Description 12/14/2018 Orders Only [facility] CLINCONV ProviderFaizan MD [address] [place] [id number] Social History Tobacco Use Types Packs/Day Years Used Date Smoking Tobacco: Former Comments Unknown Sex and Gender Information Value Date Recorded Sex Assigned at Not on file Legal Sex Female 4:35 PM INSURANCE MARKETING SPECIALIST Gender Identity Not on file Sexual Orientation Not on file documented as of this encounter Plan of Treatment Not on file documented as of this encounter Procedures Procedure Name Priority Date/Time Associated Diagnosis Comments SCAN - LABS 01/05/2019 12:00 AM CDT documented in this encounter Results * SCAN - LABS (01/05/2019 12:00 AM CDT) Narrative 01/05/2019 12:00 AM CDT Ordered by an unspecified provider. Historical Provider Final Res ult documented in this encounter Visit Diagnoses Not on filedocumented in this encounter Additional Health Concerns Infection Onset Date Last Indicated Resolved Time Exposure, COVID-19 Comment:Added automatically based on COVID19 lab answers indicating exposure risk 01/25/2021 01/25/2021 02/09/2021 3:06 AM C DT Exposure, COVID-19 Comment:Added automatically based on COVID19 lab answers indicating exposure risk 02/16/2021 02/16/2021 03/03/2021 3:05 AM C DT COVID: Suspected 10/08/2021 10/08/2021 10/08/2021 11:06 PM INSURANCE MARKETING SPECIALIST COVID: Suspected 10/11/2021 10/11/2021 10/11/2021 10:27 PM INSURANCE MARKETING SPECIALIST COVID: Suspected 09/12/2022 09/12/2022 09/13/2022 2:17 AM INSURANCE MARKETING SPECIALIST COVID19 09/12/2022 09/12/2022 09/22/2022 3:05 AM INSURANCE MARKETING SPECIALIST COVID: Recovered Comment:Added based on recent COVID infection. 09/22/2022 09/25/2022 12/21/2022 3:[address] COVID: Suspected 02/03/2023 02/03/2023 02/03/2023 11:21 PM CDT documented as of this encounter Care Teams Pc Support Specialist Relationship Specialty Start Date End Date Rafael Wild MD [address] [facility] [address] [place] [address] PCP - General 05/27/17 documented as of this encounter
--- OUTSIDE RECORDS SUMMARY | 2024-12-11 11:22 | XMS_ITS | Clinical Summary ---
Author Organization [facility] Address [address] [place] [address] Care Team Providers Care Caisson Worker Name Role Phone Rafael Wild MD Primary Care Provider [phone] Allergies Active Allergy Reactions Criticality Noted Date Comments Epinephrine Palpitations Low 09/08/2020 Very rapid heart rate Iodine Anaphylaxis High 08/18/2018 Tetracycline Hives Medium 12/24/2019 ALL CYCLINES Medications levothyroxine (SYNTHROID) 75 mcg tablet 11/17/2019 Active LORazepam (ATIVAN) 0.5 mg tablet 0 11/26/2019 Active sertraline (ZOLOFT) 50 mg tablet 11/17/2019 Active ursodioL (ACTIGALL) 300 mg capsule Rx: Actigall Active mycophenolate mofetil (CELLCEPT) 250 mg capsule Take by mouth 2 (two) times a day Active tacrolimus (PROGRAF) 1 mg capsule Take 1 mg by mouth 2 (two) times a day Active estradioL (VAGIFEM) 10 mcg tabletIndicatio ns:Dyspareunia in female Insert 1 tablet (10 mcg total) into the vagina 2 (two) times a week 14 tablet 7 01/16/2023 Active Active Problems No known active problems Encounters Date Type Department Care Team Description 09/14/2024 7:41 AM APPLICATIONS ENGINEER - 09/14/2024 11:59 PM APPLICATIONS ENGINEER Hospital Encounter [facility] [address] [place] [address] Screening mammogram, encounter for Discharge Disposition: Discharge to home or self care from Last 3 Months Surgical History Surgery Date Site/Laterality Comments LIVER TRANSPLANT Medical History Medical History Date Comments History of blood transfusion Thyroid disease History of liver transplant (CMS/HCC) (HCC) Family History Medical History Relation Name Comments Stomach cancer Brother Family histor y of malignant neoplasm of stomach - (Added by TW Conv) Cancer Mother Lung cancer Mother Family history of lung cancer - (Added by TW Conv) Stomach cancer Mother Family histor y of malignant neoplasm of stomach - (Added by TW Conv) Breast cancer Neg Hx Ovarian cancer Neg Hx Relation Name Status Comments Brother Father Mother Social History Tobacco Use Types Packs/Day Years Used Date Smoking Tobacco: Former Smokeless Tobacco: Never Alcohol Use Standard Drinks/Week Comments Not Currently 0 (1 standard drink = 0.6 oz pur e alcohol) Comments No Sex and Gender Information Value Date Recorded Sex Assigned at Not on file Legal Sex Female 4:35 PM APPLICATIONS ENGINEER Gender Identity Not on file Sexual Orientation Not on file Obstetrics History Para Term AB IAB SAB Ectopic Multiple Livin g Live Births 2 2 2 2 Date Outcome GA Total Labor Labor/2nd/3rd Weight Sex Type Anes PTL Naali A1 A5 Name Clin Term Term Last Filed Vital Signs Vital Sign Reading Time Taken Comments Blood Pressure 137/85 09/25/2022 5:15 PM APPLICATIONS ENGINEER Pulse 62 09/25/2022 5:15 PM APPLICATIONS ENGINEER Temperature 37 C (98.6 F) 09/25/2022 10:22 AM APPLICATIONS ENGINEER Respiratory Rate 18 09/25/2022 5:15 PM APPLICATIONS ENGINEER Oxygen Saturation 96% 09/25/2022 5:15 PM APPLICATIONS ENGINEER Inhaled Oxygen Concentration - - Weight 81.3 kg (179 lb 3.2 oz) 01/16/2023 8:34 A M CDT Height 160 cm (5' 3 ) 01/16/2023 8:34 AM CDT Body Mass Index 31.74 01/16/2023 8:34 AM CDT Plan of Treatment Health Maintenance Due Date Last Done Comments Colon Cancer Screening-Colonoscopy 1962 Depression Screening 1962 Hepatitis C Screening 1962 Pneumococcal vaccine <65 (1 of 2 - PCV) 1968 DTaP/Tdap/Td Vaccine (1 - Tdap) 1973 Hepatitis B Screening 1980 Zoster Vaccine (1 of 2) 1981 Covid-19 Vaccine (3 - Pfizer risk series) 02/15/2021 01/18/2021, 01/01/2021 Cervical Cancer Screening 01/01/2023 01/01/2022 Regular Well Visit/Exam 18-64 01/17/2024, 01/01/2022, 12/29/2020, Additional history exists Influenza Vaccine (#1) 2024 , 08/20/2019, 07/27/2019, Additional history exists Breast Cancer Screening-Mammogram 09/14/2025 09/14/2024, 09/11/2022, 04/04/2021, Additional history exists Procedures Procedure Name Priority Date/Time Associated Diagnosis Comments SCREENING MAMMOGRAM BILATERAL W TERESO Schedule Routine, Read Routine (OP Routine) 09/14/2024 8:02 AM APPLICATIONS ENGINEER Screening mammogram, encounter for PAP AND HIGH RISK HPV, REFLEX TO GENOTYPING Routine 01/01/2022 9:43 AM APPLICATIONS ENGINEER Screening for cervical cancer Well woman exam from Last 3 Months or Most Recently Relevant to Health Maintenance Results * Screening Mammogram Bilateral W Tereso (09/14/2024 8:02 AM APPLICATIONS ENGINEER) Anatomical Region Laterality Modality Breast Bilateral Mammography Narrative 09/14/2024 4:15 PM APPLICATIONS ENGINEER Mammogram Technique: Bilateral Digital Breast Tomosynthesis, Bilateral C-view 2D Screening mammogram. Views obtained: bilateral craniocaudal and bilateral mediolateral oblique. Computer Aided Detection was performed. Mammogram Findings: The present examination has been compared to prior imaging studies performed at [facility] on 08/26/2019, 04/04/2021 and 09/11/2022. There are scattered areas of fibroglandular density. There is no suspicious abnormality in either breast. Impression: There is no mammographic evidence of malignancy. Annual screening mammography is recommended. OVERALL FINAL ASSESSMENT: BI-RADS CATEGORY 1: Negative. Procedure Note Abhay Waterman MD - 09/14/2024 Mammogram Technique: Bilateral Digital Breast Tomosynthesis, Bilateral C-view 2D Screening mammogram. Views obtained: bilateral craniocaudal and bilateral mediolateral oblique. Computer Aided Detection was performed. Mammogram Findings: The present examination has been compared to prior imaging studies performed at [facility] on 08/26/2019, 04/04/2021 and 09/11/2022. There are scattered areas of fibroglandular density. There is no suspicious abnormality in either breast. Impression: There is no mammographic evidence of malignancy. Annual screening mammography is recommended. OVERALL FINAL ASSESSMENT: BI-RADS CATEGORY 1: Negative. us Self Screening Mammogram IMG MAMMO PROCEDURES Fi nal Result * Pap and High Risk HPV, reflex to Genotyping (01/01/2022 9:43 AM APPLICATIONS ENGINEER) Thin prep (Pap test) 01/01/2022 9:43 AM APPLICATIONS ENGINEER 01/02/2022 9:43 AM APPLICATIONS ENGINEER Narrative PATHOLOGY [facility] - 01/04/2022 12:37 PM APPLICATIONS ENGINEER [facility] Department of Pathology [address] [place], [place] [id number] Final Report with Addendum Note to Patients: This report may contain a detailed description of human tissue sent by a health care provider to the laboratory for pathologic evaluation. The content of this report is essential for diagnosis and may provide important critical findings. This information may be unfamiliar to patients to review without a medical professional present. It is advised that the patient review this report in the presence of a health care provider who can answer questions and explain the details. Patient Name: CODI BURCH Address: [address] [place] [address] Gender: F : 1960 (Age: 61) Service: Laboratory Location: [facility] #: [id number] Patient Type: [facility] SPECIMEN Taken: 01/01/2022 Received: 01/02/2022 Accessioned:: 01/03/2022 Reported: 01/04/2022 Physician(s): Caitlin Srivastava M.D. [facility] Diagnosis: Source of Specimen: SCREENING THIN PREP IMAGED PAP w/ HPV Specimen Adequacy: - Satisfactory for evaluation; endocervical/transformation zone component present General Category: - Negative for intraepithelial lesion or malignancy Viktoriya Carlos, CT(ASCP) Report Electronically Reviewed and Signed Out By NATALI Richard(ASCP) 01/04/2022 12:37:49 Addenda: HPV Test Interpretation NEGATIVE for types 16, 18, 31, 33, 35, 39, 45, 51, 52, 56, 58, 59, 66 and 68. Test performed utilizing Gen-Probe Aptima assay. NATALI Lacey(ASCP) Report Electronically Reviewed and Signed Out By SINAN LaceyASCP) 01/03/2022 14:53:16 Specimen(s) Received: A: SCREENING THIN PREP IMAGED PAP w/ HPV Clinical History: Menstrual History: Post-menopausal The Pap test is a screening test used to aid in the detection of cervical cancer and its precursors. It should not be the sole means by which malignant and premalignant lesions are diagnosed. Both false negative and false positive results may occur. It also has poor sensitivity for the detection of endometrial lesions and should not be used to evaluate suspected endometrial abnormalities. For these reasons it is most important to obtain Pap tests at regular intervals. The performance characteristics of some immunohistochemical stains, fluorescence in-situ hybridization tests and immunophenotyping by flow cytometry cited in this report (if any) were determined by the Surgical Pathology Department at [facility] as part of an ongoing quality assurance assessor program and in compliance with federally mandated regulations drawn from the Clinical Laboratory Improvement Act of 1988 (CLIA '88). Some of these tests rely on the use of analyte specific reagents and are subject to specific labeling requirements by the US Food and Drug Administration. Such diagnostic tests may only be performed in a facility that is certified by the Department of Health and Human Services as a high complexity laboratory under CLIA '88. The FDA has determined that such clearance or approval is not necessary. This test is used for clinical purposes. It should not be regarded as investigational or for research. Nevertheless, federal rules concerning the medical use of analyte specific reagents require that the following disclaimer be attached to the report: This test was developed and its performance characteristics determined by the Surgical Pathology Department [facility]. It has not been cleared or approved by the U. S. Food and Drug Administration. Caitlin Srivastava MD LAB CYTOLOGY ORDERABLES Final Re sult PATHOLOGY [facility] from Last 3 Months or Most Recently Relevant to Health [place] [address] [address] [employer] OPEN ACCESS [employer] OPEN ACCESS [employer] Care Teams Caisson Worker Relationship Specialty Start Date End Date Rafael Wild MD [address] [place], [place] [id number] PCP - General 05/27/17
--- OUTSIDE RECORDS SUMMARY | 2024-12-11 11:22 | XMS_ITS | Referral Summary ---
Author Organization [facility] Address [address] [place] [address] Care Team Providers Care Supervisor Cereal Name Role Phone Rafael Wild MD Primary Care Provider [phone] Encounters Date Type Department Care Team Description 09/14/2024 7:41 AM TRANSPLANT NURSE PRACTITIONER - 09/14/2024 11:59 PM TRANSPLANT NURSE PRACTITIONER Hospital Encounter [facility] Breast [facility] ([facility]) [address] [place] [id number] Screening mammogram, encounter for Discharge Disposition: Discharge to home or self care from Last 3 Months Allergies Active Allergy Reactions Criticality Noted Date [...] Active Active Problems No known active problems Social History Tobacco Use Types Packs/Day Years Used Date Smoking Tobacco: Former Smokeless Tobacco: Never Alcohol Use Standard Drinks/Week Comments Not Currently 0 (1 standard drink = 0.6 oz pur e alcohol) Comments No Sex and Gender Information Value Date Recorded Sex Assigned at Not on file Legal Sex Female 4:35 PM TRANSPLANT NURSE PRACTITIONER Gender Identity Not on file Sexual Orientation Not on file Last Filed Vital Signs Vital Sign Reading Time Taken Comments Blood Pressure 137/85 09/25/2022 5:15 PM TRANSPLANT NURSE PRACTITIONER Pulse 62 09/25/2022 5:15 PM TRANSPLANT NURSE PRACTITIONER Temperature 37 C (98.6 F) 09/25/2022 10:22 AM TRANSPLANT NURSE PRACTITIONER Respiratory Rate 18 09/25/2022 5:15 PM TRANSPLANT NURSE PRACTITIONER Oxygen Saturation 96% 09/25/2022 5:15 PM TRANSPLANT NURSE PRACTITIONER Inhaled Oxygen Concentration - - Weight 81.3 kg (179 lb 3.2 oz) 01/16/2023 8:34 A M CDT Height 160 cm (5' 3 ) 01/16/2023 8:34 AM CDT Body Mass Index 31.74 01/16/2023 8:34 AM CDT Plan of Treatment Not on file Procedures Procedure Name Priority Date/Time Associated Diagnosis Comments SCREENING MAMMOGRAM BILATERAL W TERESO Schedule Routine, Read Routine (OP Routine) 09/14/2024 8:02 AM TRANSPLANT NURSE PRACTITIONER Screening mammogram, encounter for PAP AND HIGH RISK HPV, REFLEX TO GENOTYPING Routine 01/01/2022 9:43 AM TRANSPLANT NURSE PRACTITIONER Screening for cervical cancer Well woman exam from Last 3 Months or Most Recently Relevant to Health Maintenance Results * Screening Mammogram Bilateral W Tereso (09/14/2024 8:02 AM TRANSPLANT NURSE PRACTITIONER) Anatomical Region Laterality Modality Breast Bilateral Mammography Narrative 09/14/2024 4:15 PM TRANSPLANT NURSE PRACTITIONER Mammogram Technique: Bilateral Digital Breast Tomosynthesis, Bilateral C-view 2D Screening mammogram. Views obtained: bilateral craniocaudal and bilateral mediolateral oblique. Computer Aided Detection was performed. Mammogram Findings: The present examination has been compared to prior imaging studies performed at [facility] on 08/26/2019, 04/04/2021 and 09/11/2022. There are [...] compared to prior imaging studies performed at [facility] on 08/26/2019, 04/04/2021 and 09/11/2022. There are scattered areas of fibroglandular density. There is no suspicious abnormality in either breast. Impression: There is no mammographic evidence of malignancy. Annual screening mammography is recommended. OVERALL FINAL ASSESSMENT: BI-RADS CATEGORY 1: Negative. us Self Screening Mammogram IMG MAMMO PROCEDURES Fi nal Result * Pap and High Risk HPV, reflex to Genotyping (01/01/2022 9:43 AM TRANSPLANT NURSE PRACTITIONER) Thin prep (Pap test) 01/01/2022 9:43 AM TRANSPLANT NURSE PRACTITIONER 01/02/2022 9:43 AM TRANSPLANT NURSE PRACTITIONER Narrative PATHOLOGY [facility] - 01/04/2022 12:37 PM TRANSPLANT NURSE PRACTITIONER [facility] Department of Pathology [address] [place] [address] Final Report with Addendum Note to Patients: [...] the details. Patient Name: CODI BURCH Address: [address] [place] [address] Gender: F : 1960 (Age: 61) Service: Laboratory Location: N : [id number] [facility] #: [id number] Patient Type: [facility] SPECIMEN Taken: 01/01/2022 Received: 01/02/2022 Accessioned:: 01/03/2022 Reported: 01/04/2022 Physician(s): Caitlin Srivastava M.D. [facility] Diagnosis: Source of Specimen: SCREENING THIN PREP IMAGED PAP w/ HPV Specimen Adequacy: - Satisfactory for evaluation; endocervical/transformation zone component present General Category: - Negative for intraepithelial lesion or malignancy NATALI Richard(ASCP) Report Electronically Reviewed and Signed Out By SINAN RichardASCP) 01/04/2022 12:37:49 Addenda: HPV Test Interpretation NEGATIVE [...] determined by the Surgical Pathology Department at [facility] as part of an ongoing air quality consultant program and in compliance with federally mandated [...] characteristics determined by the Surgical Pathology Department [facility]. It has not been cleared or approved by the U. S. Food and Drug Administration. Caitlin Srivastava MD LAB CYTOLOGY ORDERABLES Final Re sult [facility] from Last 3 Months or Most Recently Relevant to Health [place] [address] [place] [address] [employer] ACCESS [employer] [facility] Address: [address] [place] [address] [employer] OPEN ACCESS [employer] Care Teams Supervisor Cereal Relationship Specialty Start Date End Date Rafael Wild MD [address] [place] [address] PCP - General 05/27/17
--- OUTSIDE RECORDS SUMMARY | 2024-12-11 11:22 | XMS_ITS | Clinical Summary ---
Author Organization [facility] [employer] Address [address] [place] [address] Care Team Providers Care Trolley Wire Installer Name Role Phone Rafael Wild DO Primary Care Provider [phone] Hien Conti RN Unavailable Unavailable Source Comments [facility],non-owned Affiliates and Associated Physician Practices is amultiple site organization consisting of ambulatory clinics and hospital sitesin [place], [place], [place] and [place]. This disclosure is being madepursuant to the Care Everywhere program and may not contain all information available regarding this patient. Last updated 18.[facility] Allergies Active Allergy Reactions Criticality Noted Date Comments Epinephrine Other 09/08/2020 Very rapid heart rate Iodine Shortness of Breath High 09/11/2012 Tetracycline Skin Reactions,Swelling High 09/11/2012 Medications * Be aware that medications may not be up to date on this document. Alwaysverify current medications with the patient. Medication Sig Dispensed Refills Start Date End Date Status sertraline (ZOLOFT) 50 MG tablet Take 1 (one) tablet by mouth once daily Active levothyroxine (SYNTHROID) 75 MCG tablet Take 1 (one) tablet by mouth daily before breakfast Active ascorbic acid (VITAMIN C) 500 MG tablet Take 1 (one) tablet by mouth once daily Active Calcium Carb-Cholecalcifero l (CALCIUM + D3) 600-200 MG-UNIT Take 1 (one) tablet by mouth 2 times daily Active Advair Diskus 100-50 MCG/ACT inhaler 09/16/2023 Active LORazepam (Ativan) 0.5 MG tablet 11/05/2023 Active tacrolimus (Prograf) 1 MG capsule TAKE 2 CAPSULES BY MOUTH 2 TIMES A DAY 120 capsule 11 06/10/2024 Active ursodiol (Actigall) 300 MG capsule TAKE 2 CAPSULES TWICE DAILY 360 capsule 1 08/03/2024 Active mycophenolate (Cellcept) 250 MG capsule TAKE 1 CAPSULE BY MOUTH 2 TIMES A DAY 60 capsule 1 10/28/2024 Active Active Problems Problem Noted Date Diagnosed Date Colon cancer screening 12/05/2023 Thrombocytopenia 12/20/2022 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 Liver Bx from March 2008 O regulatory upload 08/12 Encounter for long-term (current) use of medicat ions 09/18/2016 Overview (01/26/2018): tacrolimus Hypothyroidism 08/10/2015 Iron deficiency anemia 08/10/2015 Overview (01/26/2018): Without anemia Abnormal levels of other serum enzymes 4 History of liver transplant 03/24/2013 Overview (01/26/2018): OLT for PBC overlap syndrome 01/06/07 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 ENDOSCOPY [address] [place] [phone] Mindi Kemp, RN 11/05/2024 Orders Only [facility] - GI [address] [place] [phone] Shashi Dyer MD History of liver transplant (HCC); Encounter for long-term (current) use of medications; Primary biliary cholangitis (HCC) 10/25/2024 Refill [facility] - GI [address] [facility], [place] [address] Shashi Dyer MD Refill Request from Last 3 Months Immunizations Name Administration Dates Next Due Covid Pfizer primary monoval ent 12+ yr 0.3mL Purple cap 01/18/2021,01/01/2021 INFLUENZA VACCINE 08/18/2020, 9,08/15/2018, 017 Family History Medical History Relation Name Comments Cancer - Stomach Brother Status: Ali ve Parkinson's Disease Father Status: Cancer - Lung Mother Status: Deceas ed Relation Name Status Comments Brother Father Mother Social History Tobacco Use Types Packs/Day Years Used Date Smoking Tobacco: Former Cigarettes Q uit: 03/24/1985 Smokeless Tobacco: Never Tobacco Cessation:Counseling Given: Not Answered Alcohol Use Standard Drinks/Week Comments No 0 (1 standard drink = 0.6 oz pur e alcohol) Sex and Gender Information Value Date Recorded Sex Assigned at Female 12/28/2020 4:32 PM MERCHANDISE CLERK Gender Identity Female 12/28/2020 4:32 PM MERCHANDISE CLERK Sexual Orientation Not on file Last Filed Vital Signs Vital Sign Reading Time Taken Comments Blood Pressure 152/96 12/10/2024 9:28 AM MERCHANDISE CLERK patient states BP has been high recently; currently asymptomatic Pulse 66 12/10/2024 9:28 AM MERCHANDISE CLERK Temperature 36.7 C (98.1 F) 12/10/2024 9:28 AM MERCHANDISE CLERK Respiratory Rate 18 07/16/2019 9:01 AM CDT Oxygen Saturation 100% 12/10/2024 9:2 8 AM MERCHANDISE CLERK Inhaled Oxygen Concentration - - Weight 82.8 kg (182 lb 9.6 oz) 12/10/2024 9:28 AM MERCHANDISE CLERK Height 160 cm (5' 3 ) 12/10/2024 9:28 AM MERCHANDISE CLERK Body Mass Index 32.35 12/10/2024 9:28 AM MERCHANDISE CLERK Plan of Treatment Upcoming Encounters Date Type Department Care Team (Latest Contact Info) Description 03/07/2025 10:15 AM CDT Hospital Encounter [facility] ENDOSCOPY [address] [place] [address] Shashi Dyer MD [address] [place] [address] [address] [place] [address] Surgery General 03/07/2025 10:15 AM CDT - 03/07/2025 11:00 AM CDT Surgery [facility] ENDOSCOPY [address] [place] [address] Shashi Dyer MD [address] [place] [address] [address] [place] [address] COLONOSCOPY SCREEN w/ asif---miralax prep 12/16/2025 9:00 AM MERCHANDISE CLERK Office Visit [facility] - GI [address] [place] [address], [facility] [place] [phone] Shashi Dyer MD [address] [place] [address] [address] [place] [address] Scheduled Procedures Name Priority Associated Diagnoses Date/Ti me COLONOSCOPY SCREEN Screen for colon cancer 03/07/2025 10:15 AM CDT Health Maintenance Due Date Last Done Comments COLOGUARD (AGES 45-75) - COLON CA SCREENING 1962 COLON MONITORING 1962 COLONOSCOPY - COLON CA SCREENING 1962 CT COLONOGRAPHY - COLON CA SCREENING 1962 Colorectal Cancer Screening 1962 FIT - COLON CA SCREENING 1962 FLEX SIG - COLON CA SCREENING 1962 PAP SMEAR 1962 HIV SCREENING 1977 HEPATITIS C SCREENING 07/19/1980 DTAP/TDAP/TD VACCINES (1 - Tdap) 1981 PNEUMOCOCCAL VACCINE 50+ (1 of 2 - PCV) 1981 ZOSTER VACCINE (1 of 2) 1981 HEPATITIS B VACCINE (1 of 3 - Risk 3-dose series) 2022 Respiratory Syncytial Virus (RSV) Vaccine Pt: or over 60 yrs (1 - Risk 60-74 years 1-dose series) 2022 LIPID TESTING 12/20/2022 12/20/2017 COVID-19 VACCINE ( season) 2024 01/03/2022, 01/18/2021, 01/01/2021 INFLUENZA VACCINE (#1) 2024 0, 08/18/2020, 08/20/2019, Additional history exists DEPRESSION SCREENING 10/27/2024 MAMMOGRAM 09/14/2026 09/14/2024, 08/27, 09/11/2022, Additional history exists SCREENING FOR DIABETES 11/27/2027 5, 08/21/2024, 04/24/2024, Additional history exists HIB VACCINE Aged Out No longer eligi ble based on patient's age to complete this topic HPV VACCINE Aged Out No longer eligi ble based on patient's age to complete this topic MENINGOCOCCAL (Group B) VACCINE Aged Out No longer eligible based on patient's age to complete this topic MENINGOCOCCAL VACCINE Aged Out No sandy franklin eligible based on patient's age to complete this topic Goals Goal Patient Goal Type Associated Problems Recent Progress Patient-Stated? Author Medication Management General On track( 9:26 AM MERCHANDISE CLERK) No Hien Conti, RN Note: Expected end date: ongoing Interventions: Take all medications as prescribed Let your doctor know right away about any changes in your medications Make sure to request a refill of your medication at least one week prior to your last dose Safety General On track( 3:25 PM MERCHANDISE CLERK) No Hien Conti, RN Note: Expected end date: ongoing Interventions: Your nurse will assess your risk for falls/injury each visit Be aware of medications that could predispose you to falling Wear non-skid/rubber sole footwear Use some light at night in your room Medication Management General On track( 9:26 AM MERCHANDISE CLERK) No Irma Houston, OCTAVIO Note: Expected end date: ONGOING Interventions: Take all medications as prescribed Let your doctor know right away about any changes in your medications Make sure to request a refill of your medication at least one week prior to your last dose Procedures Procedure Name Priority Date/Time Associated Diagnosis Comments TACROLIMUS LEVEL Routine 11/27/2024 10:0 3 AM MERCHANDISE CLERK History of liver transplant (HCC) Encounter for long-term (current) use of medications Primary biliary cholangitis (HCC) COMPREHENSIVE METABOLIC PANEL Routine 11/27/2024 10:03 AM MERCHANDISE CLERK History of liver transplant (HCC) Encounter for long-term (current) use of medications Primary biliary cholangitis (HCC) CBC W AUTO DIFFERENTIAL Routine 11/27/2024 10:03 AM MERCHANDISE CLERK History of liver transplant (HCC) Encounter for long-term (current) use of medications Primary biliary cholangitis (HCC) LIPID PROFILE (EXTERAL RESULT ENTRY) Routine 12/20/2017 from Last 3 Months or Most Recently Relevant to Health Maintenance Results * TACROLIMUS LEVEL (11/27/2024 10:03 AM MERCHANDISE CLERK) Tacrolimus 8.6 2.0 - 20.0 ng/mL [facility] INSURANCE BILL Comment: Trough (immediately following transplant) 15.0 Trough (steady state, 2 weeks or more after transplant): 3.0 - 8.0 Performed by LC-MS/MS technology. Effective November 27, 2024 the reference interval for Tacrolimus will be updated to: 5.0 - 20.0 ng/mL Blood BLOOD SPECIMEN / Unknown 11/27/2024 10:03 AM MERCHANDISE CLERK 11/27/2024 Narrative [facility] INSURANCE BILL - 11/30/2024 6:09 AM MERCHANDISE CLERK Test(s) [id number] ([id number]), Blood was developed and its performance characteristics determined by [employer]. It has not been cleared or approved by the Food and Drug Administration. Performed at: [address] [id number] Associate Program Manager: Sidra Gutierrez MD, Phone: [phone] Shashi Dyer MD LAB - THERAPEUTIC DR HANLEY MONITORING ORDERABLES [facility] INSURANCE BILL [address] [place] [address] * CBC WITH DIFFERENTIAL (11/27/2024 10:03 AM MERCHANDISE CLERK) WBC 5.8 3.4 - 10.8 x10E3/uL [facility] INSURANCE BILL RBC 4.47 3.77 - 5.28 x10E6/uL [facility] INSURANCE BILL Hemoglobin 13.9 11.1 - 15.9 g/dL [facility] INSURANCE BILL Hematocrit 42.2 34.0 - 46.6 % [facility] INSURANCE BILL MCV 94 79 - 97 fL [facility] INSURANCE BILL MCH 31.1 26.6 - 33.0 pg [facility] INSURANCE BILL MCHC 32.9 31.5 - 35.7 g/dL [facility] INSURANCE BILL RDW 12.2 11.7 - 15.4 % [facility] INSURANCE BILL Platelet Count 157 150 - 450 x10E3/uL [facility] INSURANCE BILL Granulocytes % 71 Not Estab. % [facility] INSURANCE BILL Lymphocytes % 21 Not Estab. % [facility] INSURANCE BILL Monocytes % 5 Not Estab. % [facility] INSURANCE BILL Eosinophils % 2 Not Estab. % [facility] INSURANCE BILL Basophils % 1 Not Estab. % [facility] INSURANCE BILL Granulocytes Absolute 4.1 1.4 - 7.0 x10E3/uL [facility] INSURANCE BILL Lymphocytes Absolute 1.2 0.7 - 3.1 x10E3/uL [facility] INSURANCE BILL Monocytes Absolute 0.3 0.1 - 0.9 x10E3/uL [facility] INSURANCE BILL Eosinophils Absolute 0.1 0.0 - 0.4 x10E3/uL [facility] INSURANCE BILL Basophils Absolute 0.0 0.0 - 0.2 x10E3/uL [facility] INSURANCE BILL Immature Granulocytes 0 Not Estab. % [facility] INSURANCE BILL Immature Granulocytes Absolute 0.0 0.0 - 0.1 x10E3/uL [facility] INSURANCE BILL Blood BLOOD SPECIMEN / Unknown 11/27/2024 10:03 AM MERCHANDISE CLERK 11/27/2024 Narrative [facility] INSURANCE BILL - 11/28/2024 7:07 AM MERCHANDISE CLERK Performed at: [address] [id number] Associate Program Manager: Ronak Small PhD, Phone: [phone] Shashi Dyer MD LAB - HEMATOLOGY ORD ERABLES [facility] INSURANCE BILL [address] [place] [address] * (ABNORMAL) COMPREHENSIVE METABOLIC PANEL (11/27/2024 10:03 AM MERCHANDISE CLERK) Glucose 124(H) 70 - 99 mg/dL [facility] INSURANCE BILL BUN 18 8 - 27 mg/dL [facility] INSURANCE BILL Creatinine 1.22(H) 0.57 - 1.00 mg/dL [facility] INSURANCE BILL eGFR by CKD-EPI 50(L) >59 mL/min/1.7 3 [facility] INSURANCE BILL BUN/Creatinine Ratio 15 12 - 28 [facility] INSURANCE BILL Sodium 138 134 - 144 mmol/L [facility] INSURANCE BILL Potassium 4.9 3.5 - 5.2 mmol/L [facility] INSURANCE BILL Chloride 104 96 - 106 mmol/L [facility] INSURANCE BILL CO2 23 20 - 29 mmol/L [facility] INSURANCE BILL Calcium 9.1 8.7 - 10.3 mg/dL [facility] INSURANCE BILL Protein Total 6.5 6.0 - 8.5 g/dL [facility] INSURANCE BILL Albumin 4.3 3.9 - 4.9 g/dL [facility] INSURANCE BILL Globulin Total 2.2 1.5 - 4.5 g/dL [facility] INSURANCE BILL Bilirubin Total 0.9 0.0 - 1.2 mg/dL [facility] INSURANCE BILL Alkaline Phosphatase 141(H) 44 - 121 IU/L [facility] INSURANCE BILL AST 26 0 - 40 IU/L [facility] INSURANCE BILL ALT 16 0 - 32 IU/L [facility] INSURANCE BILL Blood BLOOD SPECIMEN / Unknown 11/27/2024 10:03 AM MERCHANDISE CLERK 11/27/2024 Narrative [facility] INSURANCE BILL - 11/28/2024 8:07 AM MERCHANDISE CLERK Performed at: [address] [id number] Associate Program Manager: Ronak Small PhD, Phone: [phone] Shashi Dyer MD LAB - CHEMISTRY ORDFabiola SPRINGER [facility] INSURANCE BILL [address] [place] [address] * LIPID PROFILE (EXTERAL RESULT ENTRY) (12/20/2017) Cholesterol (EXTERNAL RESULT) 167 0 - 200 mg/dL Triglycerides (EXTERNAL RESULT) 75 mg/dL HDL (EXTERNAL RESULT) 70 mg/dL LDL (EXTERNAL RESULT) 49 mg/dL VLDL (EXTERNAL RESULT) mg/dL Chol HDL Ratio (External Result) Blood BLOOD SPECIMEN / Unknown 12/20/2017 Historical Provider LAB - CHEMISTRY O RDERABLES from Last 3 Months or Most Recently Relevant to Health Maintenance Care Teams Trolley Wire Installer Relationship Specialty Start Date End Date Rafael Wild DO [address] [facility] [address] [place], [place] [id number] PCP - General 04/04/14 Hien Conti, RN Registered Nurse Hepatology 01/13/19
--- OUTSIDE RECORDS SUMMARY | 2024-12-11 11:22 | XMS_ITS | Encounter Summary ---
Author Organization [facility] Address [address] [facility] [place] [address] Care Team Providers Care Director Medicare Sales Name Role Phone Rafael Wild DO Primary Care Provider Hien Conti RN Unavailable Unavailable Encounter Details Date Type Department Care Team (Late st Contact Info) Description 08/31/2024 Lab Requisition [facility] - DermPath Lab [address] [facility], [place] [phone] Luis Fernando Palmer MD [address] [place] [address] Social History Tobacco Use Types Packs/Day Years Used Date Smoking Tobacco: Former Cigarettes Q uit: 03/24/1985 Smokeless Tobacco: Never Alcohol Use Standard Drinks/Week Comments No 0 (1 standard drink = 0.6 oz pur e alcohol) Sex and Gender Information Value Date Recorded Sex Assigned at Female 12/28/2020 4:32 PM FLAT KNITTER Gender Identity Female 12/28/2020 4:32 PM FLAT KNITTER Sexual Orientation Not on file documented as of this encounter Plan of Treatment Upcoming Encounters Date Type Department Care Team (Latest Contact Info) Description 03/07/2025 10:15 AM CDT Hospital Encounter [facility] [address] [place] [phone] Shashi Dyer MD [address] [facility] [address] [place] [address] Surgery General 03/07/2025 10:15 AM CDT - 03/07/2025 11:00 AM CDT Surgery [facility] END[facility]COPY [address] [place] [address] Shashi Dyer MD [address] [place] [address] [address] [place] [address] COLONOSCOPY SCREEN w/ asif---miralax prep 12/16/2025 9:00 AM FLAT KNITTER Office Visit [facility] - GI [address] [facility], [place] [address] Shashi Dyer MD [address] [place] [address] [address] [place] [address] Scheduled Procedures Name Priority Associated Diagnoses Date/Ti me COLONOSCOPY SCREEN Screen for colon cancer 03/07/2025 10:15 AM CDT documented as of this encounter Goals Goal Patient Goal Type Associated Problems Recent Progress Patient-Stated? Author Medication Management General On track( 9:26 AM FLAT KNITTER) No Hien Conti, RN Note: Expected end date: ongoing Interventions: Take all medications as prescribed Let your doctor know right away about any changes in your medications Make sure to request a refill of your medication at least one week prior to your last dose Safety General On track( 021 3:25 PM FLAT KNITTER) No Hien Conti, RN Note: Expected end date: ongoing Interventions: Your nurse will assess your risk for falls/injury each visit Be aware of medications that could predispose you to falling Wear non-skid/rubber sole footwear Use some light at night in your room Medication Management General On track( 9:26 AM FLAT KNITTER) No Irma Houston, OCTAVIO Note: Expected end date: ONGOING Interventions: Take all medications as prescribed Let your doctor know right away about any changes in your medications Make sure to request a refill of your medication at least one week prior to your last dose documented as of this encounter Procedures Procedure Name Priority Date/Time Associated Diagnosis Comments DERMATOPATHOLOGY Routine 08/30/2024 3:33 AM FLAT KNITTER documented in this encounter Results * DERMATOPATHOLOGY (08/30/2024 3:33 AM FLAT KNITTER) Case Report Dermatopathology Report Case: [id number] Authorizing Provider: Luis Fernando Palmer MD Collected: 08/30/2024 03:33 AM Ordering Location: [facility] - Received: 08/31/2024 01:46 PM DermPath Lab Pathologist: Pily Ching MD Specimens: A) - Skin, right upper lip B) - Skin, right lower back 2:16 PM [facility] DERMATOPATHOLOGY LABORATORY Final Diagnosis Specimen A. SKIN, right upper lip: BENIGN VERRUCOUS KERATOSIS, INFLAMED (L82.1) Specimen B. SKIN, right lower back: SUBACUTE SPONGIOTIC DERMATITIS (L30.8) (see microscopic description and comment) 2:16 PM [facility] DERMATOPATHOLOGY [facility]ORATORY Clinical History A: R/O Dysplastic Nevus vs SK vs ISK B: R/O Lichen Planus vs Other Dermatitis 2:16 PM [facility] DERMATOPATHOLOGY LABORATORY Gross Description Specimen A: Received is one formalin filled container labeled with the patient's name and designated right upper lip. The specimen consists of a shave biopsy measuring 2x2x1 mm. Jar 0. Specimen B: Received is one formalin filled container labeled with the patient's name and designated right lower back. The specimen consists of a shave biopsy measuring 6x5x1 mm. Jar 0. 2:16 PM [facility] DERMATOPATHOLOGY LABORATORY Microscopic Description Specimen A. SKIN, right upper lip: Sections show hyperkeratosis, papillomatosis, hypergranulosis, and acanthosis. Inflammatory cells are present within the dermis. These histological findings can be seen in a verruca vulgaris or a seborrheic keratosis. Specimen B. SKIN, right lower back: There is focal parakeratosis and spongiosis of the epidermis. In the dermis there is a mainly superficial perivascular lymphoid infiltrate. COMMENT: These histological findings are consistent with an eczematous dermatitis. 11/06/202 4 2:16 PM [facility] DERMATOPATHOLOGY LABORATORY Disclaimer An external and internal positive and negative controls are appropriate for the histochemical, immunohistochemical and immunofluorescence stain(s) in this case (if any), except where stated explicitly. The performance characteristics of the stain(s) cited in this report were developed and its performance characteristic determined by the Dermatopathology Laboratory at [facility], directed by Dr. Torey Blair. These tests need not be, and therefore are not, approved by the [place] Food and Drug Administration. The tests are used for clinical purposes. Billing Codes Specimen Charges Stain Charges 00008 69439 1 1 4 2:16 PM [facility] DERMATOPATHOLOGY LABORATORY Embedded Images 4 2:16 PM [facility] DERMATOPATHOLOGY LABORATORY Pathology/Cytology TISSUE SPECIMEN FROM SKIN / Unknown 08/30/2024 3:33 AM FLAT KNITTER 08/31/2024 1:46 PM FLAT KNITTER Miscellaneous samples (specimen) TISSUE SPECIMEN FROM SKIN / Unknown 08/30/2024 3:33 AM FLAT KNITTER 08/31/2024 1:46 PM FLAT KNITTER Luis Fernando Palmer MD LAB - PATHOLOGY/CYTO LOGY ORDERABLES DERMATOPATHOLOGY LABORATORY [facility] - Department of Dermatology [facility] Medicine [address] [place] [address], [address] [phone] documented in this encounter Visit Diagnoses Not on filedocumented in this encounter Care Teams Director Medicare Sales Relationship Specialty Start Date End Date Rafael Wild DO [address] [facility] [address] [address] PCP - General 04/04/14 Hien Conti, RN Registered Nurse Hepatology 01/13/19 documented as of this encounter
--- OUTSIDE RECORDS SUMMARY | 2024-12-11 11:22 | XMS_ITS | Encounter Summary ---
Author Organization [facility] Address [address] [place] [address] Care Team Providers Care Dye Machine Tender Name Role Phone Rafael Wild Primary Care Provider +1- [phone] Hien Conti RN Unavailable Unavailable Reason for Visit * Reason Comments Liver Transplant Follow-up Encounter Details Date Type Department Care Team (Late st Contact Info) Description 03/29/2024 Telephone [facility] - [address] [place] [id number] Hien Conti, RN Liver Transplant Follow-up Social History Tobacco Use Types Packs/Day Years Used Date Smoking Tobacco: Former Cigarettes Q uit: 03/24/1985 Smokeless Tobacco: Never Alcohol Use Standard Drinks/Week Comments No 0 (1 standard drink = 0.6 oz pur e alcohol) Sex and Gender Information Value Date Recorded Sex Assigned at Female 12/28/2020 4:32 PM METEOROLOGY TEACHER Gender Identity Female 12/28/2020 4:32 PM METEOROLOGY TEACHER Sexual Orientation Not on file documented as of this encounter Miscellaneous Notes * Telephone Encounter - Hien Conti RN - 03/29/2024 12:59 PM CDT Call placed to pt . Pt report recent hospitalization at [facility] for infection in parotid gland. IV and oral antibiotics given. Pt had outreach to dentist. Now parotid gland inflamed again. RN instructs pt to be again in contact with pcp. Dr. Dyer notified. documented in this encounter Plan of Treatment Upcoming Encounters Date Type Department Care Team (Latest Contact Info) Description 03/07/2025 10:15 AM CDT Hospital Encounter [facility] [address] [place] [address] Shashi Dyer MD [address] [place] [address] [address] [place] [address] Surgery General 03/07/2025 10:15 AM CDT - 03/07/2025 11:00 AM CDT Surgery [facility] [address] [place] [address] Shashi Dyer MD [address] [place] [address] [address] [place] [address] COLONOSCOPY SCREEN w/ herreraler---miralax prep 12/16/2025 9:00 AM METEOROLOGY TEACHER Office Visit [facility] - GI [address] [place] [address], [place] [phone] Shashi Dyer MD [address] [place] [address] [address] [place] [address] Scheduled Procedures Name Priority Associated Diagnoses Date/Ti me COLONOSCOPY SCREEN Screen for colon cancer 03/07/2025 10:15 AM CDT documented as of this encounter Goals Goal Patient Goal Type Associated Problems Recent Progress Patient-Stated? Author Medication Management General On track( 025 9:26 AM METEOROLOGY TEACHER) Hien Mckeon, RN Note: Expected end date: ongoing Interventions: Take all medications as prescribed Let your doctor know right away about any changes in your medications Make sure to request a refill of your medication at least one week prior to your last dose Safety General On track( 021 3:25 PM METEOROLOGY TEACHER) Hien Mckeon, RN Note: Expected end date: ongoing Interventions: Your nurse will assess your risk for falls/injury each visit Be aware of medications that could predispose you to falling Wear non-skid/rubber sole footwear Use some light at night in your room Medication Management General On track( 025 9:26 AM METEOROLOGY TEACHER) Irma Vanessa, RN Note: Expected end date: ONGOING Interventions: Take all medications as prescribed Let your doctor know right away about any changes in your medications Make sure to request a refill of your medication at least one week prior to your last dose documented as of this encounter Visit Diagnoses Not on filedocumented in this encounter Care Teams Dye Machine Tender Relationship Specialty Start Date End Date Rafael Wild DO [address] [facility] [address] [address] PCP - General 04/04/14 Hien Conti, RN Registered Nurse Hepatology 01/13/19 documented as of this encounter
--- OUTSIDE RECORDS SUMMARY | 2024-12-11 11:22 | XMS_ITS | Encounter Summary ---
Author Organization [facility] Address [address] [place] [address] Care Team Providers Care Programming Director Name Role Phone Rafael Wild DO Primary Care Provider +1- [phone] Hien Conti RN Unavailable Unavailable Reason for Visit * Reason Onset Date Comments MEDICATION REFILL 05/28/2022 Encounter Details Date Type Department Care Team (Late Contact Info) Description 05/28/2022 Refill [facility] - GI [address] [facility], [place] [phone] Elizabeth Guerra Update Information MEDICATION REFILL Social History Tobacco Use Types Packs/Day Years Used Date Smoking Tobacco: Former Cigarettes Q uit: 03/24/1985 Smokeless Tobacco: Never Alcohol Use Standard Drinks/Week Comments No 0 (1 standard drink = 0.6 oz pur e alcohol) Sex and Gender Information Value Date Recorded Sex Assigned at Female 12/28/2020 4:32 PM AEROSPACE PROJECT ENGINEER Gender Identity Female 12/28/2020 4:32 PM AEROSPACE PROJECT ENGINEER Sexual Orientation Not on file documented as of this encounter Plan of Treatment Upcoming Encounters Date Type Department Care Team (Latest Contact Info) Description 03/07/2025 10:15 AM CDT Hospital Encounter [facility] END[facility]COPY [address] [place] [phone] Shashi Dyer MD [facility] [address] Surgery General 03/07/2025 10:15 AM CDT - 03/07/2025 11:00 AM CDT Surgery [facility] [address] [place] [address] Shashi Dyer MD [address] [place] [address] 2[address] [place] [address] COLONOSCOPY SCREEN w/ asif---miralax prep 12/16/2025 9:00 AM AEROSPACE PROJECT ENGINEER Office Visit [facility] - GI [address] [facility], [place] [address] Shashi Dyer MD [address] [place] [address] [address] [place] [address] Scheduled Procedures Name Priority Associated Diagnoses Date/Ti me COLONOSCOPY SCREEN Screen for colon cancer 03/07/2025 10:15 AM CDT documented as of this encounter Goals Goal Patient Goal Type Associated Problems Recent Progress Patient-Stated? Author Medication Management General On track( 9:26 AM AEROSPACE PROJECT ENGINEER) No Hien Conti, RN Note: Expected end date: ongoing Interventions: Take all medications as prescribed Let your doctor know right away about any changes in your medications Make sure to request a refill of your medication at least one week prior to your last dose Safety General On track( 3:25 PM AEROSPACE PROJECT ENGINEER) No Hien Conti, RN Note: Expected end date: ongoing Interventions: Your nurse will assess your risk for falls/injury each visit Be aware of medications that could predispose you to falling Wear non-skid/rubber sole footwear Use some light at night in your room Medication Management General On track( 9:26 AM AEROSPACE PROJECT ENGINEER) No Irma Houston RN Note: Expected end date: ONGOING Interventions: Take all medications as prescribed Let your doctor know right away about any changes in your medications Make sure to request a refill of your medication at least one week prior to your last dose documented as of this encounter Visit Diagnoses Not on filedocumented in this encounter Care Teams Programming Director Relationship Specialty Start Date End Date Greeling, Rafael L, DO [address] [facility] [address] [place] [address] PCP - General 04/04/14 Hien Conti, RN Registered Nurse Hepatology 01/13/19 documented as of this encounter
--- OUTSIDE RECORDS SUMMARY | 2024-12-11 11:22 | XMS_ITS ---
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 Survival Rejection Treatment Biopsy Resolved 09/11/2012 5 years 7 months Liver transplan t rejection (HCC) Donor Information Organ ABO Source Meets Risk Criteria HLA Match Mismatches Cross Match Liver Transplanted O DBD No A: B: DR: Liver Donor Serology Results Anti-CMV CMV IgG: Positive EBV IgG EBV VCA IgM: Not Done Anti-HBcAb HBC Total: Negative HBsAg HBsAg: Negative HBV DNA No results on file Anti-HCV HCV: Negative Anti-HIV I/II HIV-1: Negative Anti-HTLV I/II HTLV: Negative RPR/VDRL RPR: Negative EBV IgM EBV VCA IgM: Not Done HBsAb No results on file Toxoplasma No results on file SARS CoV-2 No results on file Care Team Name Role Phone Fax Email Hien Conti RN Liver Coordinator N/A N/A N/A Shashi Dyer MD Physician Referring Physician N/A N/A N/A Electronics Engineering Technician Jovanahrjared Referring Physician N/A N/A N/A Keven Stevenson MD Transplant Surgeon N/A N/A N/A Randolph Obrien MD Referring Physician N/A N/A N/A Events Post-Transplant Pre-Transplant Admitted: 01/23/2007 Center waitlisted: 6 Transplanted: 01/24/2007 Discharged: 01/28/2007
--- OUTSIDE RECORDS SUMMARY | 2024-12-11 11:22 | XMS_ITS | Encounter Summary ---
Author Organization [facility] Address [address] [facility] [place] [address] Care Team Providers Care Automatic Teller Machine Servicer Name Role Phone Rafael Wild DO Primary Care Provider +1- [phone] Hien Conti RN Unavailable Unavailable Encounter Details Date Type Department Care Team (Latest Contact Info) Description 12/10/2024 Travel Social History Tobacco Use Types Packs/Day Years Used Date Smoking Tobacco: Former Cigarettes Q uit: 03/24/1985 Smokeless Tobacco: Never Alcohol Use Standard Drinks/Week Comments No 0 (1 standard drink = 0.6 oz pur e alcohol) Sex and Gender Information Value Date Recorded Sex Assigned at Female 12/28/2020 4:32 PM HAZARDOUS MATERIAL SPECIALIST Gender Identity Female 12/28/2020 4:32 PM HAZARDOUS MATERIAL SPECIALIST Sexual Orientation Not on file documented as of this encounter Plan of Treatment Upcoming Encounters Date Type Department Care Team (Latest Contact Info) Description 03/07/2025 10:15 AM CDT Hospital Encounter [facility] [address] [place] [phone] Shashi Dyer MD [address] [place] [address] [address] [place] [address] Surgery General 03/07/2025 10:15 AM CDT - 03/07/2025 11:00 AM CDT Surgery [facility] [address] [place] [address] Shashi Dyer MD [address] [place] [address] [address] [place] [address] COLONOSCOPY SCREEN w/ asif---miralax prep 12/16/2025 9:00 AM HAZARDOUS MATERIAL SPECIALIST Office Visit [facility] - GI [address] [facility], [place] [address] Shashi Dyer MD [address] [place] [address] [place] [address] Scheduled Procedures Name Priority Associated Diagnoses Date/Ti me COLONOSCOPY SCREEN Screen for colon cancer 03/07/2025 10:15 AM CDT documented as of this encounter Goals Goal Patient Goal Type Associated Problems Recent Progress Patient-Stated? Author Medication Management General On track( 9:26 AM HAZARDOUS MATERIAL SPECIALIST) No Hien Conti, RN Note: Expected end date: ongoing Interventions: Take all medications as prescribed Let your doctor know right away about any changes in your medications Make sure to request a refill of your medication at least one week prior to your last dose Safety General On track( 3:25 PM HAZARDOUS MATERIAL SPECIALIST) No Hien Conti, RN Note: Expected end date: ongoing Interventions: Your nurse will assess your risk for falls/injury each visit Be aware of medications that could predispose you to falling Wear non-skid/rubber sole footwear Use some light at night in your room Medication Management General On track( 9:26 AM HAZARDOUS MATERIAL SPECIALIST) No Irma Houston, RN Note: Expected end date: ONGOING Interventions: Take all medications as prescribed Let your doctor know right away about any changes in your medications Make sure to request a refill of your medication at least one week prior to your last dose documented as of this encounter Visit Diagnoses Not on filedocumented in this encounter Care Teams Automatic Teller Machine Servicer Relationship Specialty Start Date End Date Rafael Wild DO [address] [facility] [address] [place] [address] PCP - General 04/04/14 Hien Conti, RN Registered Nurse Hepatology 01/13/19 documented as of this encounter
--- OUTSIDE RECORDS SUMMARY | 2024-12-11 11:22 | XMS_ITS | Continuity of Care Document ---
Author Organization [facility] Address [address] [place] [address] Phone Care Team Providers Care Accounting Manager Assistant Controller Name Role Phone Kaur OD, Adrien Unavailable Unavailable Procedures Procedure Date Eye Exam & Treatment Jul- Refraction Contact Lens Hydrophilic, Spherical Medical Tax Cntct Lens Hydrophilic Toric Or Prism Ba llast [employer] - Medical Optic Nerve Topography Optic Nerve Topography Contact Lens Check Oct- CL Replacement - Other Lens Oct- Tax - Medical Oct- Eye Exam & Treatment Oct- Refraction Oct- Office/outpatient Visit, Est Eye Exam & Treatment Oct- Refraction Oct- Visual Field Examination(s) Oct- Office/outpatient Visit, Est Eye Exam & Treatment Fundus Photography W/ Report Advance Directives Directive Yes / No Effective Date File Name No Information Encounters Encounter Description Practice Location Reason(s) For Visit Diagnoses Date Provider Providers Copied on Encounter [facility], [address], [place], [place], [id number], [place] tel:[phone] [facility] No Information Oct-3 0-201 0 Kaur OD Adrien. [address] , [address], [place], [address], [place]. tel:[phone] [facility], [address], [place], [place], [id number], [place] tel:[phone] [facility] No Information Apr-3 0-201 0 Kaur OD Adrien. [address] , [address], [place], [place], [facility], . tel:[phone] Referring Provider: Adrien Kaur OD A, [address], [place], [place], [facility]. tel:[phone] [facility], [address] [place] [address] [address], [place], [place], [id number], tel:[phone] [facility] No Information Feb-0 9-201 0 Kaur OD Adrien. [address], [address], [place], [place], [facility], [place]. tel:[phone] Referring Provider: Adrien Kaur OD A, [facility] [address], [place], [place], [facility]. tel:[phone] [facility], [address] [place] [address] [address], [place], [place], [id number], tel:[phone] [facility] No Information Oct-2 9-200 9 Kaur OD Adrien. [facility] [address], [address], [place], [place], [facility], . tel:[phone] [facility], [address] [place] [address] [address], [place], [place], [id number], [place] tel:[phone] [facility] No Information Oct-1 6-200 9 Kaur OD Adrien. [address], [address], [place], [place], [facility], [place]. tel:[phone] Office/outpat ient Visit, Est [facility], [address] [place] [address] [address], [place], [place], [id number], [place] tel:[phone] [facility] No Information Apr-0 7-200 9 Fuentes Jade. [address], [address], [place], [facility], [place]. tel:[phone] [facility], [address] [place] [address] [address], [place], [place], [id number], [place] tel:[phone] [facility] No Information Oct-0 7-200 8 Gina Castellon [address] , [address], [place], [facility], [place]. tel:[phone] [facility], [address] [place] [address] [address], [place], [place], [id number], [place] tel:[phone] [facility] No Information Oct-1 8-200 7 Gina Hansen. [address], [place], [facility], [place]. tel:[phone] Referring Provider: Jade Greene, [address], [place], [facility]. tel:[phone] Office/outpat ient Visit, [facility] [address] [place] [address] [address], [place], [place], [id number], [place] tel:[phone] [facility] No Information Oct-0 5-200 7 Gina Castellon [address] , [address], [place], [facility], [place]. tel:[phone] [facility], [address] [place] [address] [address], [place], [place], [address], [place] tel:[phone] [facility] No Information Mar-3 0-200 7 Gina Castellon [address], [place], [facility], [place]. tel:[phone] Referring Provider: Jade Greene, [address], [place], [facility]. tel:[phone] Family History Family Member Type Diagnosis Age At Onset No Information Payers Payer name Insurance type Covered green party ID Madeleine ibarra(s) [facility] CI [id number] Social History Type Description Quantity Date Captured Comments Sex Female Smoking Status No Information Chief Complaint And Reason For Visit No Information Reason For Referral Reason For Referral No Information History Of Present Illness Encounter Date Complaint History Of Prese nt Illness No Information Functional Status Date Functional Assessmen t No Information Instructions Date Instruction Additional Infor mation No Information Assessments Type Assessment Date No Information Patient Care Teams Name Effective Dates (start - stop) Status Members No Information
--- OUTSIDE RECORDS SUMMARY | 2024-12-11 11:22 | XMS_ITS | Encounter Summary ---
Author Organization [facility] Address [address] [place] [address] Care Team Providers Care Channeler Outsole Name Role Phone Rafael Wild DO Primary Care Provider [phone] Hien Conti RN Unavailable Unavailable Reason for Referral * Procedure (Routine) - Open Specialty Diagnoses / Procedures Referred By Contac t Referred To Contact Gastroenterology Diagnoses Colon cancer screening Procedures Endoscopy, Colon, Screening Shashi Dyer MD [address] [place] [address] [address] [place] [address] Referral ID Status Reason Start Date Expiration Date Visits Re quested Visits Authorized [id number] Open 12/10/2024 12/10/2025 1 1 PECTING DRILLER HELPER Reason for Visit * Reason Comments Liver Transplant Follow-up Encounter Details Date Type Department Care Team (Late st Contact Info) Description 12/10/2024 9:30 AM PROSPECTING DRILLER HELPER Office Visit [facility] [address] [place] [address], [place] [address] Shashi Dyer MD [address] [place] [address] [address] [place] [address] History of liver transplant (HCC) (Primary Dx); Primary biliary cholangitis (HCC); Encounter for long-term (current) use of medications; Colon cancer screening Social History Tobacco Use Types Packs/Day Years Used Date Smoking Tobacco: Former Cigarettes Q uit: 03/24/1985 Smokeless Tobacco: Never Tobacco Cessation:Counseling Given: Not Answered Alcohol Use Standard Drinks/Week Comments No 0 (1 standard drink = 0.6 oz pur e alcohol) Sex and Gender Information Value Date Recorded Sex Assigned at Female 12/28/2020 4:32 PM PROSPECTING DRILLER HELPER Gender Identity Female 12/28/2020 4:32 PM PROSPECTING DRILLER HELPER Sexual Orientation Not on file documented as of this encounter Last Filed Vital Signs Vital Sign Reading Time Taken Comments Blood Pressure 152/96 12/10/2024 9:28 AM PROSPECTING DRILLER HELPER patient states BP has been high recently; currently asymptomatic Pulse 66 12/10/2024 9:28 AM PROSPECTING DRILLER HELPER Temperature 36.7 C (98.1 F) 12/10/2024 9:28 AM PROSPECTING DRILLER HELPER Respiratory Rate - - Oxygen Saturation 100% 12/10/2024 9:2 8 AM PROSPECTING DRILLER HELPER Inhaled Oxygen Concentration - - Weight 82.8 kg (182 lb 9.6 oz) 12/10/2024 9:28 AM PROSPECTING DRILLER HELPER Height 160 cm (5' 3 ) 12/10/2024 9:28 AM PROSPECTING DRILLER HELPER Body Mass Index 32.35 12/10/2024 9:28 AM PROSPECTING DRILLER HELPER documented in this encounter Patient Instructions * Patient Instructions* Shashi Dyer MD - 12/10/2024 10:12 AM PROSPECTING DRILLER HELPER Please get blood tests in a month with urine test then every 3 months Schedule colonoscopy, Miralax prep Continue with annual dermatology Monitor home blood pressure call if > 140/90 couple times a week PECTING DRILLER HELPER documented in this encounter Plan of Treatment Upcoming Encounters Date Type Department Care Team (Latest Contact Info) Description 03/07/2025 10:15 AM CDT Hospital Encounter [facility] [address] [place] [phone] Shashi Dyer MD [address] [place] [address] [place] [address] Surgery General 03/07/2025 10:15 AM CDT - 03/07/2025 11:00 AM CDT Surgery [facility] [address] [place] [phone] Shashi Dyer MD [address] [place] [address] [address] [facility] [place] [place] [address] COLONOSCOPY SCREEN w/ asif---miralax prep 12/16/2025 9:00 AM PROSPECTING DRILLER HELPER Office Visit [facility] - GI [address] [place] [address], [facility] [place] [phone] Shashi Dyer MD [address] [place] [address] [address] [facility] [place] [address] Scheduled Orders Name Type Priority Associated Diagnoses Orde r Schedule CBC WITH DIFFERENTIAL Lab Routine History of liver transplant (HCC) Primary biliary cholangitis (HCC) Encounter for long-term (current) use of medications Colon cancer screening E- 3 Months for 4 Occurrences starting 12/10/2024 until 01/07/2026 COMPREHENSIVE METABOLIC PANEL Lab Routine History of liver transplant (HCC) Primary biliary cholangitis (HCC) Encounter for long-term (current) use of medications Colon cancer screening E- 3 Months for 4 Occurrences starting 12/10/2024 until 01/07/2026 TACROLIMUS LEVEL Lab Routine History of liver transplant (HCC) Primary biliary cholangitis (HCC) Encounter for long-term (current) use of medications Colon cancer screening E- 3 Months for 4 Occurrences starting 12/10/2024 until 01/07/2026 HEMOGLOBIN A1C Lab Routine History of liver transplant (HCC) Primary biliary cholangitis (HCC) Encounter for long-term (current) use of medications Colon cancer screening Ordered: 12/10/2024 MICROALB/CREAT RATIO URINE RANDOM PANEL Lab Routine History of liver transplant (HCC) Primary biliary cholangitis (HCC) Encounter for long-term (current) use of medications Colon cancer screening Ordered: 12/10/2024 URINALYSIS REFLEX TO MICROSCOPIC NO CULTURE Lab Routine History of liver transplant (HCC) Primary biliary cholangitis (HCC) Encounter for long-term (current) use of medications Colon cancer screening Ordered: 12/10/2024 Endoscopy, Colon, Screening GI Routine Colon cancer screening 1 Occurrences starting 12/10/2024 until 12/10/2025 Scheduled Procedures Name Priority Associated Diagnoses Date/Ti me COLONOSCOPY SCREEN Screen for colon cancer 03/07/2025 10:15 AM CDT documented as of this encounter Goals Goal Patient Goal Type Associated Problems Recent Progress Patient-Stated? Author Medication Management General On track( 9:26 AM PROSPECTING DRILLER HELPER) No Hien Conti, RN Note: Expected end date: ongoing Interventions: Take all medications as prescribed Let your doctor know right away about any changes in your medications Make sure to request a refill of your medication at least one week prior to your last dose Safety General On track( 021 3:25 PM PROSPECTING DRILLER HELPER) No Hien Conti, RN Note: Expected end date: ongoing Interventions: Your nurse will assess your risk for falls/injury each visit Be aware of medications that could predispose you to falling Wear non-skid/rubber sole footwear Use some light at night in your room Medication Management General On track( 9:26 AM PROSPECTING DRILLER HELPER) No Irma Houston RN Note: Expected end date: ONGOING Interventions: Take all medications as prescribed Let your doctor know right away about any changes in your medications Make sure to request a refill of your medication at least one week prior to your last dose documented as of this encounter Visit Diagnoses Diagnosis History of liver transplant (HCC)- Primary Liver replaced by transplant Primary biliary cholangitis (HCC) Encounter for long-term (current) use of medications Encounter for long-term (current) use of other medications Colon cancer screening Special screening for malignant neoplasms, colon Screen for colon cancer Special screening for malignant neoplasms, colon documented in this encounter Care Teams Channeler Outsole Relationship Specialty Start Date End Date Rafael Wild DO [address] [facility] [address] [place] [address] PCP - General 04/04/14 Hien Conti, RN Registered Nurse Hepatology 01/13/19 documented as of this encounter
--- OUTSIDE RECORDS SUMMARY | 2024-12-11 11:22 | XMS_ITS | Encounter Summary ---
Author Organization [facility] Address [address] [place] [address] Care Team Providers Care Mortgage Lender Name Role Phone Rafael Wild DO Primary Care Provider [phone]- [phone] Hien Conti RN Unavailable Unavailable Reason for Visit * Reason Onset Date Comments MEDICATION REFILL 05/28/2022 Encounter Details Date Type Department Care Team (Late st Contact Info) Description 05/28/2022 Refill [facility] - [address] [facility], [place] [phone] Nika Covington, LEGAL PRACTICE MANAGER REFILL Social History Tobacco Use Types Packs/Day Years Used Date Smoking Tobacco: Former Cigarettes Q uit: 03/24/1985 Smokeless Tobacco: Never Alcohol Use Standard Drinks/Week Comments No 0 (1 standard drink = 0.6 oz pur e alcohol) Sex and Gender Information Value Date Recorded Sex Assigned at Female 12/28/2020 4:32 PM CANCER SPEC Gender Identity Female 12/28/2020 4:32 PM CANCER SPEC Sexual Orientation Not on file documented as of this encounter Plan of Treatment Upcoming Encounters Date Type Department Care Team (Latest Contact Info) Description 03/07/2025 10:15 AM CDT Hospital Encounter [facility] END[facility]COPY [address] [place] [phone] Shashi Dyer MD [facility] [place] [address] Surgery General 03/07/2025 10:15 AM CDT - 03/07/2025 11:00 AM CDT Surgery [facility] [address] [place] [address] Shashi Dyer MD [address] [place] [address] [address] [place] [address] COLONOSCOPY SCREEN w/ asif---miralax prep 12/16/2025 9:00 AM CANCER SPEC Office Visit [facility] - GI [address] [facility], [place] [address] Shashi Dyer MD [address] [place] [address] [address] [place] [address] Scheduled Procedures Name Priority Associated Diagnoses Date/Ti me COLONOSCOPY SCREEN Screen for colon cancer 03/07/2025 10:15 AM CDT documented as of this encounter Goals Goal Patient Goal Type Associated Problems Recent Progress Patient-Stated? Author Medication Management General On track( 9:26 AM CANCER SPEC) No Hien Conti, RN Note: Expected end date: ongoing Interventions: Take all medications as prescribed Let your doctor know right away about any changes in your medications Make sure to request a refill of your medication at least one week prior to your last dose Safety General On track( 3:25 PM CANCER SPEC) No Hien Conti, RN Note: Expected end date: ongoing Interventions: Your nurse will assess your risk for falls/injury each visit Be aware of medications that could predispose you to falling Wear non-skid/rubber sole footwear Use some light at night in your room Medication Management General On track( 9:26 AM CANCER SPEC) No Irma Houston RN Note: Expected end date: ONGOING Interventions: Take all medications as prescribed Let your doctor know right away about any changes in your medications Make sure to request a refill of your medication at least one week prior to your last dose documented as of this encounter Visit Diagnoses Not on filedocumented in this encounter Care Teams Mortgage Lender Relationship Specialty Start Date End Date Rafael Wild DO [address] [facility] [address] [place] [address] PCP - General 04/04/14 Hien Conti, RN Registered Nurse Hepatology 01/13/19 documented as of this encounter
--- OUTSIDE RECORDS SUMMARY | 2024-12-11 11:22 | XMS_ITS | Encounter Summary ---
Author Organization [facility] Address [address] [facility] [address] Care Team Providers Care Pipe Supervisor Name Role Phone Rafael Wild DO Primary Care Provider Hien Conti RN Unavailable Unavailable Encounter Details Date Type Department Care Team (Late st Contact Info) Description 08/23/2020 Lab Requisition [facility] [address] [facility], [place] [phone] Luis Fernando Palmer MD [address] [place] [address] Social History Tobacco Use Types Packs/Day Years Used Date Smoking Tobacco: Former Cigarettes Q uit: 03/24/1985 Smokeless Tobacco: Never Alcohol Use Standard Drinks/Week Comments No 0 (1 standard drink = 0.6 oz pur e alcohol) Sex and Gender Information Value Date Recorded Sex Assigned at Female 12/28/2020 4:32 PM DIRECTOR DESIGN Gender Identity Female 12/28/2020 4:32 PM DIRECTOR DESIGN Sexual Orientation Not on file documented as of this encounter Plan of Treatment Upcoming Encounters Date Type Department Care Team (Latest Contact Info) Description 03/07/2025 10:15 AM CDT Hospital Encounter [facility] END[facility]COPY [address] [place] [phone] Shashi Dyer MD [address] [facility] [address] [facility] [place] [address] Surgery General 03/07/2025 10:15 AM CDT - 03/07/2025 11:00 AM CDT Surgery [facility] END[facility]COPY [address] [place] [address] Shashi Dyer MD [address] [place] [address] [address] [place] [address] COLONOSCOPY SCREEN w/ asif---miralax prep 12/16/2025 9:00 AM DIRECTOR DESIGN Office Visit [facility] - GI [address] [facility], [place] [address] Shashi Dyer MD [address] [place] [address] [address] [place] [address] Scheduled Procedures Name Priority Associated Diagnoses Date/Ti me COLONOSCOPY SCREEN Screen for colon cancer 03/07/2025 10:15 AM CDT documented as of this encounter Goals Goal Patient Goal Type Associated Problems Recent Progress Patient-Stated? Author Medication Management General On track( 025 9:26 AM DIRECTOR DESIGN) No Hien Conti, OCTAVIO Note: Expected end date: ongoing Interventions: Take all medications as prescribed Let your doctor know right away about any changes in your medications Make sure to request a refill of your medication at least one week prior to your last dose Safety General On track( 021 3:25 PM DIRECTOR DESIGN) No Hien Conti, OCTAVIO Note: Expected end date: ongoing Interventions: Your nurse will assess your risk for falls/injury each visit Be aware of medications that could predispose you to falling Wear non-skid/rubber sole footwear Use some light at night in your room documented as of this encounter Procedures Procedure Name Priority Date/Time Associated Diagnosis Comments DERMATOPATHOLOGY Routine 08/22/2020 12:0 0 AM CDT documented in this encounter Results * DERMATOPATHOLOGY (08/22/2020 12:00 AM CDT) Case Report Dermatopathology Report Case: [id number] Authorizing Provider: Luis Fernando Palmer MD Collected: 08/22/2020 12:00 AM Ordering Location: [facility] Lab Received: 08/23/2020 11:07 AM Pathologist: Jennifer Walter MD Specimen: Skin, right superior forehead 0 2:25 PM CDT DERMATOPATHOLOGY LABORATORY Final Diagnosis Specimen A. 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 0 2:25 PM CDT DERMATOPATHOLOGY LABORATORY Gross Description Specimen A: Received is one formalin filled container labeled with the patient's name and designated right superior forehead. The specimen consists of a shave biopsy measuring [id number]. Jar 0. 0 2:25 PM CDT DERMATOPATHOLOGY LABORATORY Microscopic Description Specimen A. SKIN, right superior forehead: The epidermis shows parakeratosis, full thickness disorderly maturation of keratinocytes, mitoses at different levels, and dyskeratotic cells. 0 2:25 PM CDT DERMATOPATHOLOGY LABORATORY Disclaimer An external and internal positive and negative controls are appropriate for the histochemical, immunohistochemical and immunofluorescence stain(s) in this case (if any), except where stated explicitly. The performance characteristics of the stain(s) cited in this report were developed and its performance characteristic determined by the Dermatopathology Laboratory at [facility], directed by Dr. Torey Blair. These tests need not be, and therefore are not, approved by the [place] Food and Drug Administration. The tests are used for clinical purposes. Billing Codes Specimen Charges Stain Charges 89138 1 0 2:25 PM CDT DERMATOPATHOLOGY LABORATORY Embedded Images 0 2:25 PM CDT DERMATOPATHOLOGY LABORATORY Pathology/Cytolog y TISSUE SPECIMEN FROM SKIN / Unknown 08/22/2020 08/23/2020 11:07 AM CDT Luis Fernando Palmer MD LAB - PATHOLOGY/CYTO LOGY ORDERABLES DERMATOPATHOLOGY LABORATORY [facility] - Department of Dermatology [facility] Specialized Medicine [facility] [facility], 3rd Floor [address] [phone] documented in this encounter Visit Diagnoses Not on filedocumented in this encounter Care Teams Pipe Supervisor Relationship Specialty Start Date End Date Rafael Wild DO [address] [facility] [address] [place] [address] PCP - General 04/04/14 Hien Conti, RN Registered Nurse Hepatology 01/13/19 documented as of this encounter
--- OUTSIDE RECORDS SUMMARY | 2024-12-11 11:23 | XMS_ITS | Patient Health Summary ---
Author Organization [facility] Address [address] [place] [address] Care Team Providers Care Thermograph Operator Name Role Phone Rafael Wild DO Primary Care Provider [phone] Hien Conti RN Unavailable Unavailable Note from [facility],non-owned Affiliates and Associated Physician Practices is amultiple site organization consisting of ambulatory clinics and hospital sitesin [place], [place], [place] and [place]. This disclosure is being madepursuant to the Care Everywhere program and may not contain all information available regarding this patient. Last updated 18.[facility] Allergies * Epinephrine(Other) * Iodine(Shortness of Breath) -High Criticality * Tetracycline(Skin Reactions,Swelling) -High Criticality Medications * Be aware that medications may not be up to date on this document. Alwaysverify current medications with the patient. * sertraline (ZOLOFT) 50 MG tablet Take 1 (one) tablet by mouth once daily * levothyroxine (SYNTHROID) 75 MCG tablet Take 1 (one) tablet by mouth daily before breakfast * ascorbic acid (VITAMIN C) 500 MG tablet Take 1 (one) tablet by mouth once daily * Calcium Carb-Cholecalciferol (CALCIUM + D3) 600-200 MG-UNIT Take 1 (one) tablet by mouth 2 times daily * Advair Diskus 100-50 MCG/ACT inhaler(Started 09/16/2023) * LORazepam (Ativan) 0.5 MG tablet(Started 11/05/2023) * tacrolimus (Prograf) 1 MG capsule(Started 06/10/2024) TAKE 2 CAPSULES BY MOUTH 2 TIMES A DAY 11 refills by 06/10/2025 * ursodiol (Actigall) 300 MG capsule(Started 08/03/2024) TAKE 2 CAPSULES TWICE DAILY 1 refill by 08/03/2025 * mycophenolate (Cellcept) 250 MG capsule(Started 10/28/2024) TAKE 1 CAPSULE BY MOUTH 2 TIMES A DAY 1 refill by 10/28/2025 Active Problems Problem Noted Date Diagnosed Date Colon cancer screening 12/05/2023 Thrombocytopenia 12/20/2022 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 Encounter for long-term (current) use of medicat ions 09/18/2016 Hypothyroidism 08/10/2015 Iron deficiency anemia 08/10/2015 Abnormal levels of other serum enzymes 4 History of liver transplant 03/24/2013 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 Major depressive disorder, single episode 2011 Immunizations * Covid Pfizer primary monovalent 12+ yr 0.3mL Purple cap(Given 01/18/2021, 01/01/2021) * INFLUENZA VACCINE(Given 08/18/2020, 07/27/2019, 08/15/2018, 08/16/2017) Social History Tobacco Use Types Packs/Day Years Used Date Smoking Tobacco: Former Cigarettes Q uit: 03/24/1985 Smokeless Tobacco: Never Tobacco Cessation:Counseling Given: Not Answered Alcohol Use Standard Drinks/Week Comments No 0 (1 standard drink = 0.6 oz pur e alcohol) Sex and Gender Information Value Date Recorded Sex Assigned at Female 12/28/2020 4:32 PM POLICY ADVISER Gender Identity Female 12/28/2020 4:32 PM POLICY ADVISER Sexual Orientation Not on file Last Filed Vital Signs Vital Sign Reading Time Taken Comments Blood Pressure 152/96 12/10/2024 9:28 AM POLICY ADVISER patient states BP has been high recently; currently asymptomatic Pulse 66 12/10/2024 9:28 AM POLICY ADVISER Temperature 36.7 C (98.1 F) 12/10/2024 9:28 AM POLICY ADVISER Respiratory Rate 18 07/16/2019 9:01 AM CDT Oxygen Saturation 100% 12/10/2024 9:2 8 AM POLICY ADVISER Inhaled Oxygen Concentration - - Weight 82.8 kg (182 lb 9.6 oz) 12/10/2024 9:28 AM POLICY ADVISER Height 160 cm (5' 3 ) 12/10/2024 9:28 AM POLICY ADVISER Body Mass Index 32.35 12/10/2024 9:28 AM POLICY ADVISER Procedures * TACROLIMUS LEVEL(Performed 11/27/2024) Performed for History of liver transplant (HCC), Encounter for long-term (current) use of medications, Primary biliary cholangitis (HCC) * COMPREHENSIVE METABOLIC PANEL(Performed 11/27/2024) Performed for History of liver transplant (HCC), Encounter for long-term (current) use of medications, Primary biliary cholangitis (HCC) * CBC W AUTO DIFFERENTIAL(Performed 11/27/2024) Performed for History of liver transplant (HCC), Encounter for long-term (current) use of medications, Primary biliary cholangitis (HCC) * DERMATOPATHOLOGY(Performed 08/30/2024) * TACROLIMUS LEVEL(Performed 08/21/2024) Performed for History of liver transplant (HCC), Encounter for long-term (current) use of medications, Primary biliary cholangitis (HCC) * COMPREHENSIVE METABOLIC PANEL(Performed 08/21/2024) Performed for History of liver transplant (HCC), Encounter for long-term (current) use of medications, Primary biliary cholangitis (HCC) * CBC W AUTO DIFFERENTIAL(Performed 08/21/2024) Performed for History of liver transplant (HCC), Encounter for long-term (current) use of medications, Primary biliary cholangitis (HCC) * TACROLIMUS LEVEL(Performed 04/24/2024) Performed for History of liver transplant (HCC), Encounter for long-term (current) use of medications, Primary biliary cholangitis (HCC) * COMPREHENSIVE METABOLIC PANEL(Performed 04/24/2024) Performed for History of liver transplant (HCC), Encounter for long-term (current) use of medications, Primary biliary cholangitis (HCC) * CBC W AUTO DIFFERENTIAL(Performed 04/24/2024) Performed for History of liver transplant (HCC), Encounter for long-term (current) use of medications, Primary biliary cholangitis (HCC) * TACROLIMUS LEVEL(Performed 11/01/2023) Performed for Primary biliary cholangitis (HCC), Other prison (current) drug therapy, History ofliver transplant (HCC), Thrombocytopenia (HCC) * COMPREHENSIVE METABOLIC PANEL(Performed 11/01/2023) Performed for Primary biliary cholangitis (HCC), Other terminologist (current) drug therapy, History ofliver transplant (HCC), Thrombocytopenia (HCC) * CBC W AUTO DIFFERENTIAL(Performed 11/01/2023) Performed for Primary biliary cholangitis (HCC), Other prison (current) drug therapy, History ofliver transplant (HCC), Thrombocytopenia (HCC) * TACROLIMUS LEVEL(Performed 07/12/2023) Performed for Primary biliary cholangitis (HCC), Other terminologist (current) drug therapy, History ofliver transplant (HCC), Thrombocytopenia (HCC) * COMPREHENSIVE METABOLIC PANEL(Performed 07/12/2023) Performed for Primary biliary cholangitis (HCC), Other prison (current) drug therapy, History ofliver transplant (HCC), Thrombocytopenia (HCC) * CBC W AUTO DIFFERENTIAL(Performed 07/12/2023) Performed for Primary biliary cholangitis (HCC), Other terminologist (current) drug therapy, History ofliver transplant (HCC), Thrombocytopenia (HCC) * TACROLIMUS LEVEL(Performed 05/15/2023) Performed for Primary biliary cholangitis (HCC), Other terminologist (current) drug therapy, History ofliver transplant (HCC), Thrombocytopenia (HCC) * COMPREHENSIVE METABOLIC PANEL(Performed 05/15/2023) Performed for Primary biliary cholangitis (HCC), Other prison (current) drug therapy, History ofliver transplant (HCC), Thrombocytopenia (HCC) * CBC W AUTO DIFFERENTIAL(Performed 05/15/2023) Performed for Primary biliary cholangitis (HCC), Other terminologist (current) drug therapy, History ofliver transplant (HCC), Thrombocytopenia (HCC) * TACROLIMUS LEVEL(Performed 03/06/2023) Performed for Primary biliary cholangitis (HCC), Other terminologist (current) drug therapy, History ofliver transplant (HCC), Thrombocytopenia (HCC) * COMPREHENSIVE METABOLIC PANEL(Performed 03/06/2023) Performed for Primary biliary cholangitis (HCC), Other prison (current) drug therapy, History ofliver transplant (HCC), Thrombocytopenia (HCC) * CBC W AUTO DIFFERENTIAL(Performed 03/06/2023) Performed for Primary biliary cholangitis (HCC), Other prison (current) drug therapy, History ofliver transplant (HCC), Thrombocytopenia (HCC) * TACROLIMUS LEVEL(Performed 02/13/2023) Performed for Primary biliary cholangitis (HCC), Other terminologist (current) drug therapy, History ofliver transplant (HCC), Thrombocytopenia (HCC) * COMPREHENSIVE METABOLIC PANEL(Performed 02/13/2023) Performed for Primary biliary cholangitis (HCC), Other prison (current) drug therapy, History ofliver transplant (HCC), Thrombocytopenia (HCC) * CBC W AUTO DIFFERENTIAL(Performed 02/13/2023) Performed for Primary biliary cholangitis (HCC), Other prison (current) drug therapy, History ofliver transplant (HCC), Thrombocytopenia (HCC) * TACROLIMUS LEVEL(Performed 11/14/2022) Performed for History of liver transplant (HCC), Other terminologist (current) drug therapy, Primary biliary cholangitis (HCC) * COMPREHENSIVE METABOLIC PANEL(Performed 11/14/2022) Performed for History of liver transplant (HCC), Other terminologist (current) drug therapy, Primary biliary cholangitis (HCC) * CBC W AUTO DIFFERENTIAL(Performed 11/14/2022) Performed for History of liver transplant (HCC), Other prison (current) drug therapy, Primary biliary cholangitis (HCC) * TACROLIMUS LEVEL(Performed 07/27/2022) Performed for History of liver transplant (HCC), Other prison (current) drug therapy, Primary biliary cholangitis (HCC) * COMPREHENSIVE METABOLIC PANEL(Performed 07/27/2022) Performed for History of liver transplant (HCC), Other prison (current) drug therapy, Primary biliary cholangitis (HCC) * CBC W AUTO DIFFERENTIAL(Performed 07/27/2022) Performed for History of liver transplant (HCC), Other prison (current) drug therapy, Primary biliary cholangitis (HCC) * TACROLIMUS LEVEL(Performed 05/11/2022) Performed for History of liver transplant (HCC), Other terminologist (current) drug therapy, Primary biliary cholangitis (HCC) * COMPREHENSIVE METABOLIC PANEL(Performed 05/11/2022) Performed for History of liver transplant (HCC), Other terminologist (current) drug therapy, Primary biliary cholangitis (HCC) * CBC W AUTO DIFFERENTIAL(Performed 05/11/2022) Performed for History of liver transplant (HCC), Other prison (current) drug therapy, Primary biliary cholangitis (HCC) * TACROLIMUS LEVEL(Performed 02/23/2022) Performed for History of liver transplant (HCC), Other prison (current) drug therapy, Primary biliary cholangitis (HCC) * COMPREHENSIVE METABOLIC PANEL(Performed 02/23/2022) Performed for History of liver transplant (HCC), Other terminologist (current) drug therapy, Primary biliary cholangitis (HCC) * CBC W AUTO DIFFERENTIAL(Performed 02/23/2022) Performed for History of liver transplant (HCC), Other prison (current) drug therapy, Primary biliary cholangitis (HCC) * TACROLIMUS LEVEL(Performed 01/02/2022) Performed for History of liver transplant (HCC), Primary biliary cholangitis (HCC), Other prison(current) drug therapy * COMPREHENSIVE METABOLIC PANEL(Performed 01/02/2022) Performed for History of liver transplant (HCC), Primary biliary cholangitis (HCC), Other terminologist(current) drug therapy * CBC W AUTO DIFFERENTIAL(Performed 01/02/2022) Performed for History of liver transplant (HCC), Primary biliary cholangitis (HCC), Other prison(current) drug therapy * TACROLIMUS LEVEL(Performed 12/04/2021) Performed for History of liver transplant (HCC), Primary biliary cholangitis (HCC), Other terminologist(current) drug therapy * COMPREHENSIVE METABOLIC PANEL(Performed 12/04/2021) Performed for History of liver transplant (HCC), Primary biliary cholangitis (HCC), Other terminologist(current) drug therapy * CBC W AUTO DIFFERENTIAL(Performed 12/04/2021) Performed for History of liver transplant (HCC), Primary biliary cholangitis (HCC), Other terminologist(current) drug therapy * TACROLIMUS LEVEL(Performed 09/26/2021) Performed for History of liver transplant (HCC), Primary biliary cholangitis (HCC), Other prison(current) drug therapy * COMPREHENSIVE METABOLIC PANEL(Performed 09/26/2021) Performed for History of liver transplant (HCC), Primary biliary cholangitis (HCC), Other terminologist(current) drug therapy * CBC W AUTO DIFFERENTIAL(Performed 09/26/2021) Performed for History of liver transplant (HCC), Primary biliary cholangitis (HCC), Other prison(current) drug therapy * TACROLIMUS LEVEL(Performed 07/18/2021) Performed for History of liver transplant (HCC), Primary biliary cholangitis (HCC), Other terminologist(current) drug therapy * COMPREHENSIVE METABOLIC PANEL(Performed 07/18/2021) Performed for History of liver transplant (HCC), Primary biliary cholangitis (HCC), Other terminologist(current) drug therapy * CBC W AUTO DIFFERENTIAL(Performed 07/18/2021) Performed for History of liver transplant (HCC), Primary biliary cholangitis (HCC), Other terminologist(current) drug therapy * TACROLIMUS LEVEL(Performed 06/14/2021) Performed for History of liver transplant (HCC) * CBC W AUTO DIFFERENTIAL(Performed 06/14/2021) Performed for History of liver transplant (HCC) * COMPREHENSIVE METABOLIC PANEL(Performed 06/14/2021) Performed for History of liver transplant (HCC) * TACROLIMUS LEVEL(Performed 01/19/2021) Performed for History of liver transplant (HCC) * COMPREHENSIVE METABOLIC PANEL(Performed 01/19/2021) Performed for History of liver transplant (HCC) * CBC W AUTO DIFFERENTIAL(Performed 01/19/2021) Performed for History of liver transplant (HCC) * TACROLIMUS LEVEL(Performed 12/27/2020) Performed for History of liver transplant (HCC) * COMPREHENSIVE METABOLIC PANEL(Performed 12/27/2020) Performed for History of liver transplant (HCC) * CBC W AUTO DIFFERENTIAL(Performed 12/27/2020) Performed for History of liver transplant (HCC) * TACROLIMUS LEVEL(Performed 11/10/2020) Performed for History of liver transplant (HCC) * COMPREHENSIVE METABOLIC PANEL(Performed 11/10/2020) Performed for History of liver transplant (HCC) * CBC W AUTO DIFFERENTIAL(Performed 11/10/2020) Performed for History of liver transplant (HCC) * [place] [facility] MOHS MG TQ H/N/H/F/G 1ST STAG 5 BLOC(Performed 09/08/2020) 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 * [place] [facility] MOHS MG TQ H/N/H/F/G EA ADDL STAG(Performed 09/08/2020) 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 * [place] REPR CMPL WND HEAD,FAC,HAND 2.6-7.5(Performed 09/08/2020) 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 * DERMATOPATHOLOGY(Performed 08/22/2020) * TACROLIMUS LEVEL(Performed 2020) Performed for History of liver transplant (HCC) * COMPREHENSIVE METABOLIC PANEL(Performed 2020) Performed for History of liver transplant (HCC) * CBC W AUTO DIFFERENTIAL(Performed 2020) Performed for History of liver transplant (HCC) * TACROLIMUS LEVEL(Performed 05/18/2020) Performed for History of liver transplant (HCC) * COMPREHENSIVE METABOLIC PANEL(Performed 05/18/2020) Performed for History of liver transplant (HCC) * CBC W AUTO DIFFERENTIAL(Performed 05/18/2020) Performed for History of liver transplant (HCC) * COMPREHENSIVE METABOLIC PANEL(Performed 02/21/2020) Performed for History of liver transplant (HCC), Primary biliary cholangitis (HCC) * CBC W AUTO DIFFERENTIAL(Performed 02/21/2020) Performed for History of liver transplant (HCC), Primary biliary cholangitis (HCC) * TACROLIMUS LEVEL(Performed 12/14/2019) Performed for History of liver transplant (HCC), Primary biliary cholangitis (HCC) * COMPREHENSIVE METABOLIC PANEL(Performed 12/14/2019) Performed for History of liver transplant (HCC), Primary biliary cholangitis (HCC) * CBC W AUTO DIFFERENTIAL(Performed 12/14/2019) Performed for History of liver transplant (HCC), Primary biliary cholangitis (HCC) * COMPREHENSIVE METABOLIC PANEL(Performed 09/24/2019) Performed for Primary biliary cholangitis (HCC), Other terminologist (current) drug therapy, History ofliver transplant (HCC), Liver transplant rejection (HCC), Rash in adult * TACROLIMUS LEVEL(Performed 09/24/2019) Performed for Primary biliary cholangitis (HCC), Other terminologist (current) drug therapy, History ofliver transplant (HCC), Liver transplant rejection (HCC), Rash in adult * CBC W AUTO DIFFERENTIAL(Performed 09/24/2019) Performed for Primary biliary cholangitis (HCC), Other terminologist (current) drug therapy, History ofliver transplant (HCC), Liver transplant rejection (HCC), Rash in adult * COMPREHENSIVE METABOLIC PANEL(Performed 08/25/2019) * CBC W AUTO DIFFERENTIAL(Performed 08/25/2019) * TACROLIMUS LEVEL(Performed 08/25/2019) Performed for Primary biliary cholangitis with systemic sclerosis (HCC) * TACROLIMUS LEVEL(Performed 07/09/2019) Performed for Primary biliary cholangitis (HCC), Other terminologist (current) drug therapy, History ofliver transplant (HCC), Liver transplant rejection (HCC), Rash in adult * CBC W AUTO DIFFERENTIAL(Performed 07/09/2019) Performed for Primary biliary cholangitis (HCC), Other prison (current) drug therapy, History ofliver transplant (HCC), Liver transplant rejection (HCC), Rash in adult * COMPREHENSIVE METABOLIC PANEL(Performed 07/09/2019) Performed for Primary biliary cholangitis (HCC), Other terminologist (current) drug therapy, History ofliver transplant (HCC), Liver transplant rejection (HCC), Rash in adult * TACROLIMUS LEVEL(Performed 05/25/2019) Performed for Primary biliary cholangitis (HCC), Other terminologist (current) drug therapy, History ofliver transplant (HCC), Liver transplant rejection (HCC), Rash in adult * CBC W AUTO DIFFERENTIAL(Performed 05/25/2019) Performed for Primary biliary cholangitis (HCC), Other terminologist (current) drug therapy, History ofliver transplant (HCC), Liver transplant rejection (HCC), Rash in adult * COMPREHENSIVE METABOLIC PANEL(Performed 05/25/2019) Performed for Primary biliary cholangitis (HCC), Other prison (current) drug therapy, History ofliver transplant (HCC), Liver transplant rejection (HCC), Rash in adult * TACROLIMUS LEVEL(Performed 04/15/2019) Performed for Primary biliary cholangitis (HCC), Other prison (current) drug therapy, History ofliver transplant (HCC), Liver transplant rejection (HCC), Rash in adult * CBC W AUTO DIFFERENTIAL(Performed 04/15/2019) Performed for Primary biliary cholangitis (HCC), Other terminologist (current) drug therapy, History ofliver transplant (HCC), Liver transplant rejection (HCC), Rash in adult * COMPREHENSIVE METABOLIC PANEL(Performed 04/15/2019) Performed for Primary biliary cholangitis (HCC), Other prison (current) drug therapy, History ofliver transplant (HCC), Liver transplant rejection (HCC), Rash in adult * TACROLIMUS LEVEL(Performed 03/08/2019) Performed for Primary biliary cholangitis (HCC), Other terminologist (current) drug therapy, History ofliver transplant (HCC), Liver transplant rejection (HCC), Rash in adult * CBC W AUTO DIFFERENTIAL(Performed 03/08/2019) Performed for Primary biliary cholangitis (HCC), Other prison (current) drug therapy, History ofliver transplant (HCC), Liver transplant rejection (HCC), Rash in adult * COMPREHENSIVE METABOLIC PANEL(Performed 03/08/2019) Performed for Primary biliary cholangitis (HCC), Other prison (current) drug therapy, History ofliver transplant (HCC), Liver transplant rejection (HCC), Rash in adult * TACROLIMUS LEVEL(Performed 01/28/2019) Performed for Primary biliary cholangitis (HCC), Other terminologist (current) drug therapy, History ofliver transplant (HCC), Liver transplant rejection (HCC), Rash in adult * CBC W AUTO DIFFERENTIAL(Performed 01/28/2019) Performed for Primary biliary cholangitis (HCC), Other terminologist (current) drug therapy, History ofliver transplant (HCC), Liver transplant rejection (HCC), Rash in adult * COMPREHENSIVE METABOLIC PANEL(Performed 01/28/2019) Performed for Primary biliary cholangitis (HCC), Other terminologist (current) drug therapy, History ofliver transplant (HCC), Liver transplant rejection (HCC), Rash in adult * TACROLIMUS LEVEL(Performed 12/16/2018) * CBC W/O DIFFERENTIAL(Performed 12/16/2018) * COMPREHENSIVE METABOLIC PANEL(Performed 12/16/2018) * PATHOLOGY TISSUE(Performed 07/27/2018) Performed for Elevated liver enzymes * BIOPSY LIVER (NEEDLE/PERCUTANEOUS)(Performed 07/27/2018) Performed for Primary biliary cirrhosis (HCC), Liver transplant rejection (HCC) * PT-INR [facility](Performed 07/27/2018) Performed for History of liver transplant (HCC) * TACROLIMUS (EXTERNAL RESULT ENTRY)(Performed 05/16/2018) * CBC W DIFF (EXTERNAL RESULT ENTRY)(Performed 05/16/2018) * COMP MET PANEL (EXTERNAL RESULT ENTRY)(Performed 05/16/2018) * TACROLIMUS (EXTERNAL RESULT ENTRY)(Performed 03/28/2018) * CBC W DIFF (EXTERNAL RESULT ENTRY)(Performed 03/28/2018) * COMP MET PANEL (EXTERNAL RESULT ENTRY)(Performed 03/28/2018) * COMP MET PANEL (EXTERNAL RESULT ENTRY)(Performed 02/21/2018) * TACROLIMUS (EXTERNAL RESULT ENTRY)(Performed 12/20/2017) * CBC W DIFF (EXTERNAL RESULT ENTRY)(Performed 12/20/2017) * LIPID PROFILE (EXTERAL RESULT ENTRY)(Performed 12/20/2017) * COMP MET PANEL (EXTERNAL RESULT ENTRY)(Performed 12/20/2017) * TACROLIMUS (EXTERNAL RESULT ENTRY)(Performed 09/13/2017) * TACROLIMUS LEVEL(Performed 03/09/2014) * COMPREHENSIVE METABOLIC PANEL(Performed 03/09/2014) * CBC W AUTO DIFFERENTIAL(Performed 03/09/2014) * CBC W AUTO DIFFERENTIAL(Performed 03/09/2014) * FERRITIN(Performed 09/19/2010) * TACROLIMUS LEVEL(Performed 09/19/2010) * COMPREHENSIVE METABOLIC PANEL(Performed 09/19/2010) * CBC W AUTO DIFFERENTIAL(Performed 09/19/2010) * FERRITIN(Performed 09/19/2010) * COMPREHENSIVE METABOLIC PANEL(Performed 09/19/2010) * CBC W AUTO DIFFERENTIAL(Performed 09/19/2010) * T4 FREE(Performed 10/27/1998) * CBC W AUTO DIFFERENTIAL(Performed 10/27/1998) * TSH(Performed 10/27/1998) * COMPREHENSIVE METABOLIC PANEL(Performed 10/27/1998) Results * TACROLIMUS LEVEL (11/27/2024 10:03 AM POLICY ADVISER) Only the most recent of33 resultswithin the time period is included. [facility] Tacrolimus 8.6 2.0 - 20.0 ng/mL [facility] INSURANCE BILL Comment: Trough (immediately following transplant) 15.0 Trough (steady state, 2 weeks or more after transplant): 3.0 - 8.0 Performed by LC-MS/MS technology. Effective November 27, 2024 the reference interval for Tacrolimus will be updated to: 5.0 - 20.0 ng/mL Blood BLOOD SPECIMEN / Unknown 11/27/2024 10:03 AM POLICY ADVISER 11/27/2024 Narrative [facility] INSURANCE BILL - 11/30/2024 6:09 AM POLICY ADVISER Test(s) [id number] ([id number]), Blood was developed and its performance characteristics determined by [facility]. It has not been cleared or approved by the Food and Drug Administration. Performed at: 01 - [address] [id number] Net Development Manager: Sidra Gutierrez MD, Phone: [phone] Shashi Dyer MD LAB - THERAPEUTIC DR HANLEY MONITORING ORDERABLES [facility] INSURANCE BILL [address] [place] [address] * CBC WITH DIFFERENTIAL (11/27/2024 10:03 AM POLICY ADVISER) Only the most recent of36 resultswithin the time period is included. WBC 5.8 3.4 - 10.8 x10E3/uL [facility] [...] BLOOD SPECIMEN / Unknown 11/27/2024 10:03 AM POLICY ADVISER 11/27/2024 Narrative [facility] INSURANCE BILL - 11/28/2024 7:07 AM POLICY ADVISER Performed at: 01 - [address] [id number] Net Development Manager: Ronak Small PhD, Phone: [phone] Shashi Dyer MD LAB - HEMATOLOGY ORD ERABLES [facility] INSURANCE BILL [address] [place] [address] * (ABNORMAL) COMPREHENSIVE METABOLIC PANEL (11/27/2024 10:03 AM POLICY ADVISER) Only the most recent of36 resultswithin the time period is included. Glucose 124(H) 70 - 99 mg/dL [facility] [...] BLOOD SPECIMEN / Unknown 11/27/2024 10:03 AM POLICY ADVISER 11/27/2024 Narrative [facility] INSURANCE BILL - 11/28/2024 8:07 AM POLICY ADVISER Performed at: 01 - [id number] [place], [place] [id number] Net Development Manager: Ronak Small PhD, Phone: [phone] Shashi Dyer MD LAB - CHEMISTRY MICHELA SPRINGER [facility] INSURANCE BILL [address] [place] [address] * DERMATOPATHOLOGY (08/30/2024 3:33 AM [facility]) Only the most recent of2 resultswithin the time period is included. Case Report Dermatopathology Report Case: [id number] Authorizing Provider: Luis Fernando Palmer MD Collected: 08/30/2024 03:33 AM Ordering Location: [facility] - Received: 08/31/2024 01:46 PM [facility] Lab Pathologist: Pily Ching MD Specimens: A) - Skin, right upper lip B) - Skin, right lower back 2:16 PM [facility] Final Diagnosis Specimen A. SKIN, right upper lip: BENIGN VERRUCOUS KERATOSIS, INFLAMED (L82.1) Specimen B. SKIN, right lower back: SUBACUTE SPONGIOTIC DERMATITIS (L30.8) (see microscopic description and comment) 2:16 PM [facility] Clinical History A: R/O Dysplastic Nevus vs SK vs ISK B: R/O Lichen Planus vs Other Dermatitis 2:16 PM [facility] Gross Description Specimen A: Received [...] measuring 6x5x1 mm. Jar 0. 2:16 PM [facility] Microscopic Description Specimen A. SKIN, [...] findings are consistent with an eczematous dermatitis. 2:16 PM [facility] Disclaimer An external and internal positive and negative controls are appropriate for the histochemical, immunohistochemical and immunofluorescence stain(s) in this case (if any), except where stated explicitly. The performance characteristics of the stain(s) cited in this report were developed and its performance characteristic determined by the Dermatopathology Laboratory at [facility], directed by Dr. Torey Blair. These tests need not be, and therefore are not, approved by the [place] Food and Drug Administration. The tests are used for clinical purposes. Billing Codes Specimen Charges Stain Charges 03500 63159 1 1 4 2:16 PM [facility] DERMATOPATH[facility]Y LABORATORY Embedded Images 4 2:16 PM [facility] DERMATOPATHOLOGY LABORATORY Pathology/Cytology TISSUE SPECIMEN FROM SKIN / Unknown 08/30/2024 3:33 AM POLICY ADVISER 08/31/2024 1:46 PM POLICY ADVISER Miscellaneous samples (specimen) TISSUE SPECIMEN FROM SKIN / Unknown 08/30/2024 3:33 AM POLICY ADVISER 08/31/2024 1:46 PM POLICY ADVISER Luis Fernando Palmer MD LAB - PATHOLOGY/CYTO LOGY ORDERABLES Performing Organization Address City/State/[place] Co de Phone Number DERMATOPATHOLOGY LABORATORY [facility] - Department of Dermatology [address], [address] [phone] * [place] REPR CMPL WND HEAD,FAC,HAND 2.6-7.5, [place] [facility] MOHS MG TQ H/N/H/F/G EA ADDL STAG, [place] [facility] MOHSMG TQ H/N/H/F/G 1ST STAG 5 BLOC (09/08/2020 1:13 PM POLICY ADVISER) Narrative Rosendo Fuentes MD - 09/08/2020 1:13 PM POLICY ADVISER Rosendo Fuentes MD 09/12/2020 12:53 PM Date of Service: 09/08/2020 Surgery: Mohs micrographic surgery Indication: Tumor location Repair Type: complex Repair Size: 3.0 cm Suture Material: monocryl 5-0;Fast Absorbing Gut 5-0 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 PostOp Size: 1.5x1.4 cm. Mohs Level of Defect: fat Stage I: The patient was placed supine on the operating table. The cancer was identified, outlined with a marker, and verified by the patient. The entire surgical field was prepped with Hibiclens. The surgical site was anesthetized using Bupivacaine 0.5% without epinephrine. The area of clinically apparent tumor was debulked with 2mm curette. The layer of tissue was then surgically excised using a #15 blade and was then transferred onto a specimen sheet maintaining the orientation of the specimen. Hemostasis was obtained using monopolar electrodessication. The wound site was then covered with a dressing while the tissue samples were processed for examination. The excised tissue was transported to the [facility] histology laboratory maintaining the tissue orientation. The tissue specimen was relaxed so that the entire surgical margin was in a a single horizontal plane for sectioning andinked for precise mapping. A precise reference map was drawn to reflect the sectioning of the specimen, colored inking of the margins, and orientation on the patient. The tissue was processed using horizontal sectioning ofthe base and continuous peripheral margins. The histopathologic sections were reviewed in conjunction with the reference map. Total blocks: 1 Total slides: 4 Residual tumor was identified and indicated in red on the reference map, identifying the location where further tissue excision was necessary. Therefore, an additional stage of Mohs Micrographic surgery was deemed necessary. Stage II The patient was returned to the operating room, and the area prepped in the usual manner. The residual tumor was excised using the reference map as a guide. The specimen was transfered to a labeled specimen sheet maintaining the orientation of the specimen. Hemostasis was obtained and the wound site was covered with a dressing while the tissue was processed for examination. The excised tissue was transported to the [facility] histology laboratory maintaining orientation. The specimen margins were inked for precise mapping and a reference map was prepared for the is additional stage to maintain precise orientation as described above. The tissue was processed using horizontal sectioning of the base and continuous peripheral margins. The histopathologic sections were reviewed in conjunction with the reference map. Total blocks: 1 Total slides: 2 There were no cancer cells visualized on examination, therefore Mohs surgery was complete. Reconstruction: Complex Closure Primary Surgeon : Gina Machine Repairer Surgeon : Ken The patient was taken to the operative suite and placed supine on the operating room table. The defect was identified. Appropriate markings were made with a marking pen to plan the repair. The area was infiltrated with Bupivacaine 0.5% and prepped with iodine and draped with sterile towels. The wound was debeveled and undermined widely. Cones were excised within relaxed skin tension lines on both sides of the defect. Hemostasis was obtained using monopolar electrodessication. The dermis and subcutaneous tissue were then approximated using buried vertical mattress sutures. The wound edges were then approximated additional buried sutures were placed in a similar fashion where needed. Percutaneous running sutures were carefully placed for maximum eversion and meticulous approximation. Repair Size: 3.0 cm Sutures Used: 5-0 monocryl; 5-0 fast gut The wound was cleansed with saline and ointment was applied along the wound surface. A sterile pressure dressing was applied. Wound care instructions were given verbally and in writing. The patient left the operating suite in stable condition. Patient was informed that additional refinement of the resulting surgical scar may be used as a second stage of this reconstruction. The Attending surgeon was present for the entire procedure and always immediately available. Anel Rogers MD [facility] Dermatologic Surgery Fellow Rosendo Fuentes MD PROCEDURE/MINOR SURG ICAL ORDERABLES * CBC W/O DIFFERENTIAL (12/16/2018 3:36 PM POLICY ADVISER) WBC 5.4 3.4 - 10.8 x10E3/uL [facility] INSURANCE BILL RBC 4.21 3.77 - 5.28 x10E6/uL [facility] INSURANCE BILL Hemoglobin 12.6 11.1 - 15.9 g/dL [facility] INSURANCE BILL Hematocrit 38.8 34.0 - 46.6 % [facility] INSURANCE BILL MCV 92 79 - 97 fL [facility] INSURANCE BILL MCH 29.9 26.6 - 33.0 pg [facility] INSURANCE BILL MCHC 32.5 31.5 - 35.7 g/dL [facility] INSURANCE BILL RDW 13.9 12.3 - 15.4 % [facility] INSURANCE BILL Platelet Count 151 150 - 379 x10E3/uL [facility] INSURANCE BILL nRBC NOT NEEDED [facility] INSURANCE BILL Comment:Ancillary determined the test is not needed 12/16/2018 3:36 PM POLICY ADVISER 12/16/2018 Narrative Resulting Agency Comment [facility] [address] [phone] Shashi Dyer MD LAB - HEMATOLOGY ORD ERABLES [facility] INSURANCE [place]ILL [place] [address] [place] [address] * PATHOLOGY TISSUE (07/27/2018 2:50 PM CDT) Case Report Surgical Pathology Report Case: [id number] Authorizing Provider: Shashi Dyer MD Collected: 07/27/2018 02:50 PM Ordering Location: [facility] ENDOSCOPY Received: 07/27/2018 03:36 PM Pathologist: Rosita Gonzalez MD Specimen: Liver Needle Biopsy 07/30/2018 12:20 PM CDT [facility] PATHOLOGY LAB Final Diagnosis Liver, biopsy (A): - Chronic cholestasis, bile duct injury and mixed portal inflammation with interface activity - See comment 07/30/2018 12:20 PM CDT [facility] Microscopic Description and Comment Sections of the liver show a mixed inflammatory infiltrate in the portal tracts including mostly lymphocytes, but also eosinophils, occasional plasma cells, and histiocytes. In areas, there is somewhat brisk interface activity. In some portal tracts, there are vague granulomas are noted, and deeper sections show granulomatous inflammation involving a bile duct. A CK7 immunostain was performed and shows irregular bile duct contours indicating bile duct injury, and focal ductular reaction. Additionally, there is biliary metaplasia suggestive of cholestasis. A copper stain is positive, further supporting the impression of chronic cholestasis. There is no endotheliitis. Scattered small granulomas are seen in the lobules. There is no steatosis. Though the portal infiltrate is mixed as often seen in acute cellular rejection/T cell mediated rejection, there is no endotheliitis to further support such a diagnosis. In considering chronic rejection, the presence of ductular reaction and absence of degenerative atypia argues against that diagnosis. Instead, the granulomatous bile duct injury and focal ductular reaction is a good fit for recurrent primary biliary cirrhosis. However, the histopathologic features indicates that this process is more complex the the usual primary biliary cirrhosis alone. The interface activity is suggestive of a prominent hepatitic component--possibly some degree of an autoimmune overlap--though clinical correlation is needed. 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 Follow-up laboratory tests are significant for a slowly rising alkaline phosphatase (most recent at 170). Other labs: AST 44 and ALT 42. 07/30/2018 12:20 PM [facility] PATHOLOGY LAB Gross Description The requisition and specimen label(s) are identified with the patient name, Codi Covington . Received in formalin, specimen A, liver biopsy consists of three fragments of pink-gamino tissue ranging from 0.2 to 1.6 cm. The specimen has a diameter of 0.1 cm. The specimen is wrapped in tissue paper and submitted in toto in cassette A1. TB/cml 07/30/2018 12:20 PM [facility] PATHOLOGY LAB Disclaimer The performance characteristics of all immunohistochemical and indirect immunofluorescence stains (if any) cited in this report were determined by the Histopathology Laboratory of [facility]. Some of these tests were developed by our own laboratory and have not been cleared or approved by the [place] Food and Drug Administration. The FDA does not require this test to go through premarket FDA review. These tests are used for clinical purposes. They should not be regarded as investigational or for research. This laboratory is certified under the Clinical Laboratory Improvement Amendments (CLIA) as qualified to perform high complexity clinical laboratory testing. This case has been personally reviewed and interpreted by the attending (teaching) pathologist. 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 Recurrent PBC Shashi Dyer MD LAB - PATHOLOGY/CYTO LOGY ORDERABLES [facility] PATHOLOGY LAB [address] [phone] * PT-INR [facility] (07/27/2018 11:03 AM CDT) PT 13.8 12.1 - 14.8 Seconds 07/27/2018 11:34 AM CDT [facility] LABORATORY HOSPITAL INR 1.1 See Comment 07/27/2018 11:34 AM T [facility] LABORATORY [facility] Comment: The suggested therapeutic range for standard coumadin (warfarin) therapy is an INR of 2.0-3.0. For high-risk patients (Mechanical Mitral Valve Prosthesis, etc.), the suggested prophylactic therapeutic range is an INR of 2.5-3.5. Blood BLOOD SPECIMEN / Unknown Venipuncture / Unknown 07/27/2018 11:03 AM CDT 07/27/2018 11:20 AM CDT Shashi Dyer MD LAB - COAGULATION OR DERABLES [address] [phone] * (ABNORMAL) CBC W DIFF (EXTERNAL RESULT ENTRY) (05/16/2018) Only the most recent of3 resultswithin the time period is included. WBC (EXTERNAL RESULT) 4.3(A) 4.5 - 10.0 10^3/ul Hemoglobin (EXTERNAL RESULT) 13.1 12.0 - 15.0 g/dl Hematocrit (EXTERNAL RESULT) 37.4 37.0 - 47.0 % Platelets (EXTERNAL RESULT) 146(A) 150 - 375 10^3/ul Neutrophil Absolute (EXTERNAL RESULT) 2.3 1.3 - 6.7 10^3/ul Blood BLOOD SPECIMEN / Unknown 05/16/2018 Historical Provider LAB - HEMATOLOGY ORDERABLES * TACROLIMUS (EXTERNAL RESULT ENTRY) (05/16/2018) Only the most recent of4 resultswithin the time period is included. Tacrolimus Level (EXTERNAL RESULT) 5.3 Blood BLOOD SPECIMEN / Unknown 05/16/2018 Historical Provider LAB - CHEMISTRY O RDERABLES * (ABNORMAL) COMP MET PANEL (EXTERNAL RESULT ENTRY) (05/16/2018) Only the most recent of4 resultswithin the time period is included. Glucose (EXTERNAL) 98 65 - 105 mg/dL Sodium (EXTERNAL RESULT) 135(A) 137 - 145 mmol/L Potassium (EXTERNAL RESULT) 4.2 3.4 - 5.0 mmol/L Chloride (EXTERNAL RESULT) 99 98 - 107 mmol/L CO2 (EXTERNAL) 25 22 - 30 mmol/L Calcium (EXTERNAL RESULT) 9.1 8.4 - 10.2 mg/dL Anion Gap (EXTERNAL RESULT) mmol/L BUN (EXTERNAL RESULT) 20(A) 7 - 17 mg/dL Creatinine (EXTERNAL RESULT) 1.30(A) 0.7 - 1.0 mg/dl Alkaline Phosphatase (EXTERNAL RESULT) 173(A) 38 - 126 U/L ALT (EXTERNAL RESULT) 31 9 - 52 U/L AST (EXTERNAL RESULT) 39(A) 14 - 36 U/L Protein Total (EXTERNAL RESULT) 8.0 6.3 - 8.2 gm/dL Albumin (EXTERNAL RESULT) 4.2 3.5 - 5.1 gm/dL Bilirubin Total (EXTERNAL RESULT) 1.0 0.2 - 1.3 mg/dL eGFR MDRD (EXTERNAL RESULT) mL/min/1.7 3m2 eGFR (EXTERNAL) mL/min/1.7 3m2 Blood BLOOD SPECIMEN / Unknown 05/16/2018 Historical Provider LAB - CHEMISTRY O RDERABLES * LIPID PROFILE (EXTERAL RESULT ENTRY) (12/20/2017) Cholesterol (EXTERNAL RESULT) 167 0 - 200 mg/dL Triglycerides (EXTERNAL RESULT) 75 mg/dL HDL (EXTERNAL RESULT) 70 mg/dL LDL (EXTERNAL RESULT) 49 mg/dL VLDL (EXTERNAL RESULT) mg/dL Chol HDL Ratio (External Result) Blood BLOOD SPECIMEN / Unknown 12/20/2017 Historical Provider LAB - CHEMISTRY O RDERABLES * (ABNORMAL) FERRITIN (09/19/2010 8:14 AM POLICY ADVISER) Only the most recent of2 resultswithin the time period is included. Ferritin 179(H) 13 - 150 ng/mL [facility] 09/19/2010 8:14 AM POLICY ADVISER 09/19/2010 5:24 PM POLICY ADVISER Narrative [facility] ([place] - 09/21/2010 3:35 PM POLICY ADVISER Performed at: - [address] [id number] Net Development Manager: Sheyla Martin MD, Phone: [phone] Pearl Cohen PA-C LAB - CHEMISTRY ORDERABLES Performing Organization Address [facility]/[place] Co de Phone Number [facility] * TSH (10/27/1998 12:00 AM POLICY ADVISER) TSH 2.390 REPLACED BY [facility] Venous blood specimen (specimen) 10/27/1998 Narrative [facility] - 10/27/1998 12:00 AM POLICY ADVISER This order was created through External Result Entry Shashi Dyer MD LAB - CHEMISTRY MICHELA SPRINGER Performing Organization Address [facility]/[place] Co de Phone Number [facility] * T4 FREE (10/27/1998 12:00 AM POLICY ADVISER) T4 Free 1.43 REPLACED BY [facility] Venous blood specimen (specimen) 10/27/1998 Narrative [facility] - 10/27/1998 12:00 AM POLICY ADVISER This order was created through External Result Entry Shashi Dyer MD LAB - CHEMISTRY MICHELA SPRINGER Performing Organization Address City/[facility]/ZIP Co de Phone Number [facility] Care Teams Thermograph Operator Relationship Specialty Start Date End Date Rafael Wild DO [address] [facility] [address] [facility] [address] [place] [address] PCP - General 04/04/14 Hien Conti, RN Registered Nurse Hepatology 01/13/19
--- OUTSIDE RECORDS SUMMARY | 2024-12-11 11:23 | XMS_ITS | Referral Summary ---
Author Organization [facility] Address [address] [facility] [place] [address] Care Team Providers Care Renderer Name Role Phone Rafael Wild DO Primary Care Provider [phone] Hien Conti RN Unavailable Unavailable Source Comments [facility],non-owned Affiliates and Associated Physician Practices is amultiple site organization consisting of ambulatory clinics and hospital sitesin [place], [place], [place] and [place]. This disclosure is being madepursuant to the Care Everywhere program and may not contain all information available regarding this patient. Last updated 18.[facility] Encounters Date Type Department Care Team Description 12/10/2024 Travel 12/10/2024 9:30 AM DEGREASER Office Visit [facility] [place] [phone] Shashi Dyer MD History of liver transplant (HCC) (Primary Dx); Primary biliary cholangitis (HCC); Encounter for long-term (current) use of medications; Colon cancer screening 11/18/2024 Patient Outreach [facility] [address] [place] [phone] Mindi Kemp RN 11/05/2024 Orders Only [facility] [address] [place] [phone] Shashi Dyer MD History of liver transplant (HCC); Encounter for long-term (current) use of medications; Primary biliary cholangitis (HCC) 10/25/2024 Refill [facility] [address] [facility] [place] [address] Shashi Dyer MD Refill Request from Last 3 Months Allergies Active Allergy [...] PBC overlap Liver Bx from March 2008 IMO regulatory upload 08/12 Encounter for long-term (current) use of medicat ions 09/18/2016 Overview (01/26/2018): tacrolimus Hypothyroidism 08/10/2015 Iron deficiency anemia 08/10/2015 Overview (01/26/2018): Without anemia Abnormal levels of other serum enzymes 4 History of liver transplant 03/24/2013 Overview (01/26/2018): OLT for PBC overlap syndrome 01/06/07 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 Overview (01/26/2018): 03/2008 Major depressive disorder, single episode 2011 Immunizations Name Administration Dates Next Due Covid Pfizer primary monoval ent 12+ yr 0.3mL Purple cap 01/18/2021,01/01/2021 INFLUENZA VACCINE 08/18/2020, 9,08/15/2018, 017 Social History Tobacco Use Types Packs/Day Years Used Date Smoking Tobacco: Former Cigarettes Q uit: 03/24/1985 Smokeless Tobacco: Never Tobacco Cessation:Counseling Given: Not Answered Alcohol Use Standard Drinks/Week Comments No 0 (1 standard drink = 0.6 oz pur e alcohol) Sex and Gender Information Value Date Recorded Sex Assigned at Female 12/28/2020 4:32 PM DEGREASER Gender Identity Female 12/28/2020 4:32 PM DEGREASER Sexual Orientation Not on file Last Filed Vital Signs Vital Sign Reading Time Taken Comments Blood Pressure 152/96 12/10/2024 9:28 AM DEGREASER patient states BP has been high recently; currently asymptomatic Pulse 66 12/10/2024 9:28 AM DEGREASER Temperature 36.7 C (98.1 F) 12/10/2024 9:28 AM DEGREASER Respiratory Rate 18 07/16/2019 9:01 AM CDT Oxygen Saturation 100% 12/10/2024 9:2 8 AM DEGREASER Inhaled Oxygen Concentration - - Weight 82.8 kg (182 lb 9.6 oz) 12/10/2024 9:28 AM DEGREASER Height 160 cm (5' 3 ) 12/10/2024 9:28 AM DEGREASER Body Mass Index 32.35 12/10/2024 9:28 AM DEGREASER Plan of Treatment Upcoming Encounters Date Type Department Care Team (Latest Contact Info) Description 03/07/2025 10:15 AM CDT Hospital Encounter [facility] [address] [place] [address] Shashi Dyer MD [address] [place] [address] Surgery General 03/07/2025 10:15 AM CDT - 03/07/2025 11:00 AM CDT Surgery [facility] [address] [place] [phone] Shashi Dyer MD [address] [place] [address] [address] [place] [address] COLONOSCOPY SCREEN w/ asif---miralax prep 12/16/2025 9:00 AM DEGREASER Office Visit [facility] [address] [facility] [place] [phone] Shashi Dyer MD [address] [place] [address] [address] [place] [address] Scheduled Procedures Name Priority Associated Diagnoses Date/Ti me COLONOSCOPY SCREEN Screen for colon cancer 03/07/2025 10:15 AM CDT Goals Goal Patient Goal Type Associated Problems Recent Progress Patient-Stated? Author Medication Management General On track( 9:26 AM DEGREASER) No Hien Conti, OCTAVIO Note: Expected end date: ongoing Interventions: Take all medications as prescribed Let your doctor know right away about any changes in your medications Make sure to request a refill of your medication at least one week prior to your last dose Safety General On track( 3:25 PM DEGREASER) No Hien Conti, RN Note: Expected end date: ongoing Interventions: Your nurse will assess your risk for falls/injury each visit Be aware of medications that could predispose you to falling Wear non-skid/rubber sole footwear Use some light at night in your room Medication Management General On track( 9:26 AM DEGREASER) No Irma Houston, OCTAVIO Note: Expected end date: ONGOING Interventions: Take all medications as prescribed Let your doctor know right away about any changes in your medications Make sure to request a refill of your medication at least one week prior to your last dose Procedures Procedure Name Priority Date/Time Associated Diagnosis Comments TACROLIMUS LEVEL Routine 11/27/2024 10:0 3 AM DEGREASER History of liver transplant (HCC) Encounter for long-term (current) use of medications Primary biliary cholangitis (HCC) COMPREHENSIVE METABOLIC PANEL Routine 11/27/2024 10:03 AM DEGREASER History of liver transplant (HCC) Encounter for long-term (current) use of medications Primary biliary cholangitis (HCC) CBC W AUTO DIFFERENTIAL Routine 11/27/2024 10:03 AM DEGREASER History of liver transplant (HCC) Encounter for long-term (current) use of medications Primary biliary cholangitis (HCC) LIPID PROFILE (EXTERAL RESULT ENTRY) Routine 12/20/2017 from Last 3 Months or Most Recently Relevant to Health Maintenance Results * TACROLIMUS LEVEL (11/27/2024 10:03 AM DEGREASER) Tacrolimus 8.6 2.0 - 20.0 ng/mL [facility] INSURANCE BILL Comment: Trough (immediately following transplant) 15.0 Trough (steady state, 2 weeks or more after transplant): 3.0 - 8.0 Performed by LC-MS/MS technology. Effective November 27, 2024 the reference interval for Tacrolimus will be updated to: 5.0 - 20.0 ng/mL Blood BLOOD SPECIMEN / Unknown 11/27/2024 10:03 AM DEGREASER 11/27/2024 Narrative [facility] INSURANCE BILL - 11/30/2024 6:09 AM DEGREASER Test(s) [id number] ([id number]), Blood was developed and its performance characteristics determined by [id number]. It has not been cleared or approved by the Food and Drug Administration. Performed at: 01 - [address] [id number] [employer] Covering: Sidra Gutierrez MD, Phone: [phone] Shashi Dyer MD LAB - THERAPEUTIC DR HANLEY MONITORING ORDERABLES [facility] INSURANCE BILL [address] [place] [address] * CBC WITH DIFFERENTIAL (11/27/2024 10:03 AM DEGREASER) WBC 5.8 3.4 - 10.8 x10E3/uL [facility] [...] BLOOD SPECIMEN / Unknown 11/27/2024 10:03 AM DEGREASER 11/27/2024 Narrative [facility] INSURANCE BILL - 11/28/2024 7:07 AM DEGREASER Performed at: - [address] [id number] [employer] Cover[employer]: Ronak Small PhD, Phone: [phone] Shashi Dyer MD LAB - HEMATOLOGY ORD ERABLES [facility] INSURANCE BILL [address] [place] [address] * (ABNORMAL) COMPREHENSIVE METABOLIC PANEL (11/27/2024 10:03 AM DEGREASER) Glucose 124(H) 70 - 99 mg/dL [facility] [...] BLOOD SPECIMEN / Unknown 11/27/2024 10:03 AM DEGREASER 11/27/2024 Narrative [facility] INSURANCE BILL - 11/28/2024 8:07 AM DEGREASER Performed at: [address] [id number] [employer] Cover[employer]: Ronak Small PhD, Phone: [phone] Shashi Dyer MD LAB - CHEMISTRY MICHELA SPRINGER [facility] INSURANCE BILL [address] [place] [address] * LIPID PROFILE (EXTERAL RESULT ENTRY) (12/20/2017) [...] Recently Relevant to Health Maintenance Care Teams Renderer Relationship Specialty Start Date End Date Rafael Wild DO [address] [facility] [address] [place], [place] [id number] PCP - General 04/04/14 Hien Conti, RN Registered Nurse Hepatology 01/13/19
== END 2024-12-11 11:20 | disposition home or self-care (01) ==
PROVIDERS: PCP Internal Medicine; Visit Provider Internal Medicine
DX: M79.641 Pain in right hand (principal)
CPT/HCPCS: 73130